=== PATIENT | female | born 1950 | race Caucasian/White ===

== ENCOUNTER 2017-06-17 11:21 | Inpatient (IN) | payer MEDICARE, SELFPAY ==
[2017-06-17] VITALS (9 sets, daily range): BP systolic 79–103; BP diastolic 45–51; PULSE 64–79; RESP 16–22; TEMP 36.3–37.1; O2SAT 92–100; BMI 26.4; BMI 25.3
--- NOTE | 2017-06-17 11:45 | EKG12_ITS ---
Test Reason : Blood Pressure : / mmHG Vent. Rate : 062 BPM Atrial Rate : 062 BPM P-R Int : 144 ms QRS Dur : 128 ms QT Int : 454 ms P-R-T Axes : 008 046 019 degrees QTc Int : 460 ms Normal sinus rhythm Right bundle branch block Abnormal ECG Confirmed by FAWAD ROGERS, AKIN ([id number]), continuity editor AXEL SARABIA ([id number]) on 06/19/2017 3:27:35 PM Referred By: Kobe Bonilla Confirmed By:AKIN CELESTIN MD
[2017-06-17] MEDS: 0.9% Normal Saline 1,000 ML 1000 ML IV (12:04)
[2017-06-17 12:28] LABS: Anion Gap 8 (5-15); BUN 11 mg/dL (7-18); BUN/Creat Ratio 14.6 RATIO (10-20); Calcium,Total 8.3 mg/dL (8.5-10.1); Chloride 104 mmol/L (98-107); Creatinine, Serum 0.75 mg/dL (0.55-1.02); EST Glomerular Filtration Rate 81 mL/min (>60); Est Glom Filt Rate - Afr Amer 98 mL/min (>60); Estimated Creatinine Clearance 38.68 ml/min; Glucose 94 mg/dL (74-106); Potassium 3.4 mmol/L (3.5-5.1); Sodium Level 141 mmol/L (136-145)
--- NOTE | 2017-06-17 13:49 | ED.DCSUM_ITS ---
- ER Visit Summary Date of Service: 06/17/17 Chief Complaint: [Syncope] History of Present Illness: The patient is a 67 F [presents to the] emergency department with a syncopal episode that occurred prior to arrival in the emergency department. Patient was seen her cancer specialist to get chemotherapy today for her esophageal cancer. Patient stood up out of her chair to go speak with the physician and felt lightheaded and dizzy. Patient did pass out for a short time. She was given orange juice. Patient was sent to the ER for further evaluation. Patient apparently felt okay this morning but over last few days she has been feeling lightheaded and dizzy with standing. Patient has had decreased appetite. Patient denies any blood in her stool or black tarry stool. Patient's last chemotherapy was a week ago. Patient denies any chest pain or shortness of breath. Physical Examination: [HEENT-PERRLA, EOMI. Cranial nerves II through XII grossly intact. TMs clear. Mucous membranes dry. No adenopathy. Cardiovascular-regular rate and rhythm without murmur or ectopy Lungs-clear to auscultation, chest wall stable without crepitus or subcu emphysema Abdomen-normoactive bowel sounds, soft, nontender, no rebound or rigidity, no peritoneal signs. Extremities-intact ?4, normal range of motion, normal pulses, atraumatic] Test Results: [EKG shows sinus rhythm with a ventricular rate of 62 bpm with a right bundle branch block. CBC with differential showed a white blood cell count of 1.9, hemoglobin 9.8, hematocrit 29, platelets 286. Chemistry showed a sodium 141, potassium 3.4, chloride 109, CO2 29, glucose 94, BUN 11, creatinine 0.75. Troponin was less than 0.02.] Emergency Department Course and Treatment: [Patient received a liter normal same fluid bolus she will be written for a second liter as she continues to be hypotensive.] Treatment Plan: [Admit for IV hydration] Disposition: [Admit] Impression: [Hypotension Syncope] This note was generated with [employer] dictation software. It may contain incorrect words, spelling, and punctuation that were not noted in review of the chart prior to signing ED Disposition - Plan for ED Patient: Chief Complaint: Syncope Referrals: Prince Shen [Primary Care Provider] -
--- NOTE | 2017-06-17 14:16 | HP.PCM_ITS ---
Problem List (1) History of TIAs Status: Chronic (2) Esophagus cancer Status: Chronic Qualifiers: (3) Metastatic cancer to intra-abdominal lymph nodes Status: Chronic (4) Bone metastases Status: Chronic (5) Liver lesion Status: Chronic (6) Hypertension Status: Chronic Qualifiers: (7) Allergic rhinitis Status: Chronic Qualifiers: (8) Chemotherapy induced neutropenia Status: Chronic History of Present Illness Date of Admission: 06/17/17 Chief Complaint: Syncope. The patient is a 67 year old F with past medical history as mentioned above presented to the medicine because of syncope. Today, patient went to the cancer center for chemotherapy for metastatic esophageal cancer and when she stood up to go for chemotherapy, she felt dizzy with blurry vision and she passed out. She was out for a few seconds and she gained her consciousness shortly. After she woke up, she was dizzy and lightheaded. She denied associated chest pain, palpitation, nausea or vomiting. She has not been eating or drinking well for the last few days because of side effects of chemotherapy. At the same time, she has been having diarrhea at least 3-4 times daily with loose stool without blood. She denied abdominal pain, nausea vomiting. She denied cough or sputum production. Denied chest pain or shortness of breath. She denies urinary symptoms. She denies fever or chills. She had a history of metastatic esophageal cancer and currently on chemotherapy, last chemotherapy was 1 week ago and she supposed to get her chemotherapy today but it was canceled because she passed out. She had a history of TIA and she was started on Plavix that time. She has history of hypertension which seemed to be under control with atenolol and lisinopril. In the emergency room, she was hypotensive. Blood pressure was 79/47, afebrile, ulcerated and pulse ox was normal. Routine blood work was remarkable for leukopenia, anemia and neutropenia with absolute neutrophil count of 700 as well as potassium of 3.4. Troponin is negative. EKG revealed normal sinus rhythm with right bundle branch block, no acute changes. She is being admitted for syncope which is likely vasovagal syncope, hypotension, neutropenia, hypokalemia and dehydration. Past Medical History Past Medical History (Chronic Problems): Chronic Problems (Last Reviewed 06/17/17 @ 11:02 by Anu Rehman) History of TIAs (Chronic) Esophagus cancer (Chronic) Regional lymph node metastasis present (Chronic) Metastatic cancer to intra-abdominal lymph nodes (Chronic) Bone metastases (Chronic) Liver lesion (Chronic) Hypertension (Chronic) Allergic rhinitis (Chronic) Overweight (BMI 25.0-29.9) (Chronic) Chemotherapy induced neutropenia (Chronic) Allergies doxycycline Allergy (Severe, Verified 06/17/17 11:02) Swelling burning/red to face nitrofurantoin [From Macrodantin] Allergy (Mild, Verified 06/17/17 11:02) Rash prednisone Adverse Reaction (Severe, Verified 06/17/17 11:02) Rash burning/red on face Home Medications: Ambulatory Orders Medication Instructions Recorded Atenolol [Tenormin] 25 mg PO DAILY 03/28/17 Lisinopril [Zestril] 30 mg PO DAILY 03/28/17 Ondansetron HCl [Zofran] 4 mg PO Q8H PRN PRN #30 tab 04/11/17 ProCHLORPERazine [Compazine] 10 mg SL Q4H PRN PRN 04/13/17 Famotidine [Pepcid AC] 10 mg PO DAILY 04/22/17 Loratadine [Claritin] 10 mg PO DAILY 04/22/17 Aspirin [Aspirin, Baby] 81 mg PO DAILY@0800 tab.chew 04/24/17 Atorvastatin Calcium [Lipitor] 80 mg PO QHS #30 tab 04/24/17 Clopidogrel Bisulfate [Plavix] 75 mg PO DAILY #30 tab 04/24/17 Nystatin 500,000 unit PO 4X/DAY #1 bottle 04/24/17 Sertraline HCl [Zoloft] 25 mg PO DAILY 05/06/17 Prochlorperazine Maleate 10 mg PO 4X/DAY PRN PRN #30 tab 05/20/17 [Compazine] Bmx Liquid 10 ml PO 4X/DAY PRN PRN #180 ml 05/27/17 Potassium Chloride [K-Dur] 10 meq PO TID 3 Days #9 tab 06/03/17 Surgical History: appendectomy, - - Lymph node dissection/Bx, T+A, Appendectomy. 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 Paternal History Items: - - Father w/ history of severe Alzheimer's diease and Prostate CA. Review of Systems Constitutional: Reports: Weakness. Denies: Anorexia, Chills, Fever Eyes: Denies: Blurred vision, Double vision, Drainage HEENT: Denies: Difficulty Hearing, Ear Pain, Eye Pain Cardiovascular: Reports: Light Headedness, Syncope. Denies: Chest Pain, Chest Pressure, Edema, Heaviness, Orthopnea, Paroxysmal Noc. Dyspnea Respiratory: Denies: Cough, Pleuritic Pain, Shortness of Breath, Sputum production, Wheezing Gastrointestinal: Denies: Abdominal Pain, Diarrhea, Nausea, Vomiting Genitourinary: Denies: Dysuria, Frequency, Hematuria Musculoskeletal: Denies: Arm Pain, Back Pain, Foot Pain Skin: Denies: Dryness, Rash Neurological: Denies: Balance problems, Change in Speech, Slurred speech, Confusion, Headaches, Incoordination, Numbness, Tingling Psychiatric: Denies: Anxiety, Depression Endocrine: Denies: Change in Body Habitus, Polydipsia VTE Information - Inpt Only VTE Present on Admission: No VTE Mechan Device Prophylaxis: None VTE Pharm Prophylaxis ordered?: Yes - Physical Exam General: Alert, Oriented x3, Cooperative, No apparent distress HEENT: Atraumatic, PERRLA, EOMI Oral: No Gingival or Mucosal Lesions/ Ulcerations, Dry Mucosa Neck: Supple, No JVD, Negative Carotid Bruits, Trachea Midline, Thyroid Normal Size and Texture Lungs: Clear to auscultation, No rhonchi, No wheeze, No rales, Diminished Cardiovascular: Regular rate, Regular Rhythm, Normal S1, No murmurs, PMI Normal Abdomen: Bowel Sounds Present, Soft, Non Tender, Non-Distended, No Hepato- splenomegaly Extremities: No clubbing, No cyanosis, No edema Skin: No rashes, No breakdown Lymphatic: No Cervical, Supraclavicular, or Inguinal Adenopathy Neurological: Cranial nerves II-XII grossly intact, Motor Exam 5/5 strength throughout Psych/Mental Status: Normal Affect, Appropriate, Alert and oriented to time, place, person, mood and affect Vital Signs Temp Pulse Resp BP Pulse Ox 97.7 F L 64 18 89/48 L 100 06/17/17 11:22 06/17/17 13:56 06/17/17 13:56 06/17/17 13:56 06/17/17 13:56 Oxygen Delivery Method Room Air Weight: 135 lb 2.294 oz Body Mass Index (BMI) 26.4 Finger Stick Blood Glucose 170 Laboratory Tests Past 24 Hrs 06/17/17 10:55 Sodium 141 Potassium 3.4 L Chloride 104 Carbon Dioxide 29.0 Anion Gap 8 BUN 11 Creatinine 0.75 Estim Creat Clear Calc 38.68 Est GFR (MDRD) Af Amer 98 Est GFR (MDRD) Non-Af 81 BUN/Creatinine Ratio 14.6 Glucose 94 Calcium 8.3 L Troponin I < 0.02 Assessment/Plan This is a 67 years old female patient presented to the emergency room because of syncope, found to have hypotension, neutropenia, hypokalemia and dehydration. #1 syncope/hypotension: This is vasovagal syncope secondary to poor oral intake , diarrhea and patient continued to take her antihypertensive medications. EKG revealed normal sinus rhythm with right bundle branch block, no acute changes or arrhythmias. No focal deficit on physical exam. Blood pressure slightly improved after IV fluids. Plan: Admit to PCU, cardiac monitoring, IV fluids for hydration with potassium replacement, input output chart, repeat CBC and BMP tomorrow morning, hold antihypertensive medications including atenolol and lisinopril, repeat orthostatic vitals tomorrow morning, encourage oral intake, PT OT evaluation and treatment. #2 dehydration/diarrhea: Secondary to poor oral intake and diarrhea. Patient clinically dehydrated, BUN and creatinine are normal. Plan for IV fluids, input output chart, hold lisinopril and atenolol, stool for C. difficile and enteric pathogens. #3 hypokalemia: Chronic, secondary to chemotherapy. Potassium is 3.4. No EKG changes, plan to replace potassium with potassium chloride added to IV fluids, repeat BMP tomorrow morning, check serum magnesium. #4 leukopenia/neutropenia: Without fever. It is secondary to chemotherapy. Absolute neutrophil count is 700. She has no fever. No evidence of infection, UA is pending. #5 chronic anemia: Secondary to cancer and chemotherapy, baseline hemoglobin around 10-12 g/dL. admission hemoglobin is 9.8 g/dL, no evidence of active bleeding. No indication for transfusion. Plan to repeat CBC tomorrow morning. #6 metastatic esophageal cancer: With metastasis to bone and liver as well as intra-abdominal lymph nodes, currently chemotherapy. She follows up with Dr. Ferguson. #7 hypertension: Pressure is low, plan as above. Hold atenolol and lisinopril. #8 DVT prophylaxis: Subcu Lovenox. This note was generated with [employer]ation software. It may contain incorrect words, spelling, and punctuation that were not noted in checking the note before signing. Code Visit Inpatient E&M: 64822 Init Hosp L3
[2017-06-17] MEDS: NYSTATIN 500,000 UNIT/5 ML UDC 500000 UNIT PO ×2 (18:18→23:12)
[2017-06-17 20:28] LABS: Red Blood Cells-Urine 0 SEEN /hpf (0-5); Squamous Epithelial Cells - UA 0 SEEN /hpf (5-10)
[2017-06-17 20:39] LABS: Color, Urine Yellow (Yellow); Glucose, Dipstick Normal (Normal); Ketone-Dipstick 5 mg/dl (Negative); Leukocyte Esterase-Dipstick 500 /ul (Negative); Nitrite-Dipstick Negative (Negative); Occult Blood-Urine 10 /ul (Negative); Protein-Dipstick 15 mg/dl (Negative); Specific Gravity, Urine 1.015 (1.002-1.030); Urine Bilirubin Dipstick Negative (Negative); Urine Clarity Sl. Cloudy (Clear); Urine Urobilinogen Normal (Normal)
[2017-06-17 21:01] LABS: Bacteria RARE /hpf (None Seen); Hyaline Cast 0-5 SEEN /lpf (0-5); Mucous, Urine 2+ /hpf (<or=2+); White Blood Cells 10-25 SEEN /hpf (0-5)
[2017-06-17] MEDS: Atorvastatin Calcium 80 MG Tablet PO (23:12)
[2017-06-17] MEDS: LORazepam 0.5 MG Tablet PO (23:56)
[2017-06-18] VITALS (14 sets, daily range): BP systolic 97–112; BP diastolic 46–56; PULSE 76–103; RESP 16–18; TEMP 36.8–37.5; O2SAT 93–97
[2017-06-18 06:09] LABS: Absolute Lymphocyte Count 0.94 X10^3/ul (0.83-4.51); Absolute Neutrophil Count 0.4 X10^3/uL (2.0-7.7); Basophil# 0.05 X10^3/uL; Basophil% 3.4 % (0-1); Eosinophil# 0.01 X10^3/uL; Eosinophils% 0.7 % (0-5); Hematocrit 24.3 % (37-47); Hemoglobin 7.9 g/dl (12.0-15.0); Lymphocyte # 0.94 X10^3/ul (4.0); Lymphocyte % 63.5 % (19-41); Mean Corp Hgb Conc 32.5 g/gl (32-36); Mean Corpuscular Hgb 31.1 pg (27.0-32.0); Mean Corpuscular Volume 95.7 fL (81-99); Mean Platelet Vol. 9.9 fl (6.2-12.0); Monocyte# 0.13 X10^3/uL; Monocyte% 8.8 % (0-10); Neutrophil # 0.35 X10^3/uL (2.7-7.7); Neutrophil % 23.6 % (47-70); Platelet Count 219 K/mm3 (150-450); Red Blood Count 2.54 M/mm3 (4.2-5.4); White Blood Count 1.5 K/mm3 (4.4-11.0)
[2017-06-18 06:10] LABS: Differential Indicated SCAN CRITERIA MET; POSITIVE COUNT YES; POSITIVE DIFFERENTIAL YES; POSITIVE MORPHOLOGY NO
[2017-06-18 06:21] LABS: Anion Gap 8 (5-15); BUN 7 mg/dL (7-18); Calcium,Total 7.6 mg/dL (8.5-10.1); Chloride 111 mmol/L (98-107); Creatinine, Serum 0.44 mg/dL (0.55-1.02); EST Glomerular Filtration Rate 152 mL/min (>60); Est Glom Filt Rate - Afr Amer 184 mL/min (>60); Estimated Creatinine Clearance 38.68 ml/min; Glucose 80 mg/dL (74-106); Potassium 3.3 mmol/L (3.5-5.1); Sodium Level 145 mmol/L (136-145)
[2017-06-18] MEDS: Aspirin 81 MG TAB.CHEW PO (09:00)
[2017-06-18] MEDS: Sertraline 50 MG Tablet 25 MG PO (09:00)
[2017-06-18] MEDS: Famotidine 20 MG Tablet 10 MG PO (09:01)
[2017-06-18] MEDS: Loratadine 10 MG Tablet PO (09:01)
[2017-06-18] MEDS: Clopidogrel Bisulfate 75 MG Tablet PO (09:01)
[2017-06-18] MEDS: NYSTATIN 500,000 UNIT/5 ML UDC 500000 UNIT PO ×4 (09:01→21:12)
[2017-06-18] MEDS: Enoxaparin 40 MG/0.4 ML Syringe SC (09:02)
--- NOTE | 2017-06-18 11:00 | CASEMGMT ---
Addendum entered by Piedad Martinez 06/18/17 11:55: This RN CM back to room to complete CM assessment and RN is at bedside completing pt care at this time. Will attempt again later. Cyndi NARANJO CM Original Note: This RN CM to room to complete CM assessment and pt is in bathroom with assist at this time. Will attempt again later. Cyndi NARANJO CM
--- NOTE | 2017-06-18 14:18 | CASEMGMT ---
This RN CM to room to complete CM assessment and therapy is at bedside working with pt at this time. This RN CM will see as first pt 06/19. SSttrinidad RN CM
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
--- NOTE | 2017-06-18 16:59 | PCM.PN.HOSP ---
Patient Problems: Active and Suspected Problems (Last Reviewed 06/17/17 @ 11:02 by Anu Rehman) Hypotension (Acute) Pancytopenia (Acute) Subjective: Patient overall feels better. she had nausea, vomiting and diarrhea after chemotherapy. She had hypotension and on the top she is on antihypertensive medication probably that is the reason for syncope. Vitals/I&O's: Vital Signs Temp Pulse Resp BP Pulse Ox 98.2 F 85 18 108/55 L 96 06/18/17 15:33 06/18/17 15:33 06/18/17 15:33 06/18/17 15:33 06/18/17 15:33 Oxygen Delivery Method Room Air Weight: 129 lb 10.109 oz Body Mass Index (BMI) 25.3 Orthostatic Vital Signs Start: 06/18/17 01:03 Freq: q24h Status: Active Protocol: Activity Type Activity Date Activity User E-Sign Co-Sign Detail Recorded Client Recorded Date Recorded By Document 06/18/17 05:10 BAM [id number] 06/18/17 05:13 BAM 06/18/17 05:10 Orthostatic Vitals Standing -Blood Pressure (90/60-120/80) 97/49 L -Extremity Use Right Arm -Pulse Rate (60-100) 103 H Sitting -Blood Pressure (90/60-120/80) 98/47 L -Extremity Use Right Arm -Pulse Rate (60-100) 88 Lying -Blood Pressure (90/60-120/80) 102/46 L -Extremity Use Right Arm -Pulse Rate (60-100) 85 Intake and Output for Last 24 Hours 06/16/17 06/17/17 06/18/17 23:59 23:59 23:59 Intake Total 923 / 923 1231 / 1231 Balance 923 / 923 1231 / 1231 General: Alert, Oriented x3, Cooperative, Lethargic, - - Lost about 16 pounds in 3 months. HEENT: Atraumatic, PERRLA, EOMI, Normocephalic Oral: Moist Mucosa Neck: Supple, No JVD, Negative Carotid Bruits Lungs: Clear to auscultation, Normal air movement, No rhonchi, No wheeze, No rales Cardiovascular: Regular rate, No murmurs Abdomen: Bowel Sounds Present, Soft, Non Tender, Non-Distended Extremities: No edema, Capillary Refill Less than 3 Seconds Skin: No rashes, No breakdown Musculoskeletal: No Tenderness to Palpation of Joints or Extremities Neurological: Cranial nerves II-XII grossly intact Psych/Mental Status: Normal Affect, Appropriate Microbiology Past 72 Hours 06/18/17 12:14 Stool C. difficile DNA Amplification - Final Laboratory Results 06/17/17 20:10: Urine Color Yellow, Urine Clarity Sl. Cloudy, Urine pH 6.0, Ur Specific [place] 1.015, Urine Protein 15 H, Urine Glucose (UA) Normal, Urine Ketones 5 H, Urine Occult Blood 10 H, Urine Nitrite Negative, Urine Bilirubin Negative, Urine Urobilinogen Normal, Ur Leukocyte Esterase 500 H, Urine RBC 0 SEEN, Urine WBC 10-25 SEEN, Ur Squamous Epith Cells 0 SEEN, Urine Bacteria RARE, Hyaline Casts 0-5 SEEN, Urine Mucus 2+ 06/18/17 05:40: WBC 1.5 L, RBC 2.54 L, Hgb 7.9 L, Hct 24.3 L, MCV 95.7, MCH 31.1, MCHC 32.5, RDW 16.0 H, RDW Differential 53.0 H, Plt Count 219, MPV 9.9, Immature Gran % (Auto) 0.000, Neut % (Auto) 23.6 L, Lymph % (Auto) 63.5 H, [place] % (Auto) 8.8, Eos % (Auto) 0.7, Baso % (Auto) 3.4 H, Absolute Neuts (auto) 0.4 L, Absolute Lymphs (auto) 0.94, Total Counted Not Reportable 06/18/17 05:40: Sodium 145, Potassium 3.3 L, Chloride 111 H, Carbon Dioxide 26.0, Anion Gap 8, BUN 7, Creatinine 0.44 L, Estim Creat Clear Calc 38.68, Est GFR (MDRD) Af Amer 184, Est GFR (MDRD) Non-Af 152, BUN/Creatinine Ratio 16.0, Glucose 80, Calcium 7.6 L Current Medications Acetaminophen (Tylenol) 650 mg PO Q6H PRN PRN PRN Reason: Fever, headache, pain Aspirin (Aspirin, Baby) 81 mg PO DAILY@0800 [facility] Last Admin: 06/18/17 09:00 Dose: 81 mg Atorvastatin Calcium (Lipitor) 80 mg PO QHS [facility] Last Admin: 06/17/17 23:12 Dose: 80 mg Clopidogrel Bisulfate (Plavix) 75 mg PO DAILY [facility] Last Admin: 06/18/17 09:01 Dose: 75 mg Enoxaparin Sodium (Lovenox) 40 mg SC DAILY@1000 [facility] Last Admin: 06/18/17 09:02 Dose: 40 mg Famotidine (Pepcid) 10 mg PO DAILY [facility] Last Admin: 06/18/17 09:01 Dose: 10 mg Heparin Sodium (Beef Lung) (Heparin 500 Unit/5 Ml (100/Ml)) 500 unit IV UD PRN PRN Reason: HEPARIN FLUSH Potassium Chloride/Sodium Chloride () 1,000 mls @ 100 mls/hr IV .Q10H [facility] Last Admin: 06/18/17 11:53 Dose: 100 mls/hr Loratadine (Claritin) 10 mg PO DAILY [facility] Last Admin: 06/18/17 09:01 Dose: 10 mg Nutritional Formula (Lactose Free) (Ensure Enlive) 120 ml PO 4X/DAY [facility] Last Admin: 06/18/17 14:35 Dose: 120 ml Nystatin (Nystatin) 500,000 unit PO 4X/DAY [facility] Stop: 07/01/17 14:01 Last Admin: 06/18/17 14:35 Dose: 500,000 unit Ondansetron HCl (Zofran) 4 mg IV Q8H PRN PRN PRN Reason: NAUSEA/VOMITING Potassium Chloride (K-Dur) 40 meq PO BIDCM [facility] Sertraline HCl (Zoloft) 25 mg PO DAILY [facility] Last Admin: 06/18/17 09:00 Dose: 25 mg Sodium Chloride () 10 ml IV UD PRN PRN Reason: VAD FLUSH Tbo-Filgrastim (Granix) 300 mcg SC DAILY [facility] Assessment/Plan Active and Suspected Problems (Last Reviewed 06/17/17 @ 11:02 by Anu Rehman) Hypotension (Acute) Pancytopenia (Acute) This is a 67 years old female patient presented to the emergency room because of syncope, found to have hypotension, neutropenia, hypokalemia and dehydration. #1 syncope due to dehydration and hypotension: This is vasovagal syncope secondary to poor oral intake, diarrhea and patient continued to take her antihypertensive medications. EKG revealed normal sinus rhythm with right bundle branch block, no acute changes or arrhythmias. No focal deficit on physical exam. Blood pressure slightly improved after IV fluids. The patient is being admitted to PCU, cardiac monitoring, IV fluids for hydration with potassium replacement, input output chart, repeat CBC and BMP tomorrow morning, hold antihypertensive medications including atenolol and lisinopril, repeat orthostatic vitals tomorrow morning, encourage oral intake, PT OT evaluation and treatment. Patient was advised to hold lisinopril and atenolol at home when her systolic blood pressures less than 130 mmHg. She has home BP monitor. #2 dehydration/diarrhea: Secondary to poor oral intake and diarrhea. Patient clinically dehydrated, BUN and creatinine are normal. Continue IV fluids, input output chart, hold lisinopril and atenolol, stool for C. difficile is negative and enteric Bacteroides panel pending. #3 hypokalemia: Chronic, secondary to chemotherapy. Potassium is 3.4. No EKG changes, plan to replace potassium with potassium chloride added to IV fluids, repeat BMP tomorrow morning, check serum magnesium. #4 Severe anemia and neutropenia due to bone marrow suppression from chemotherapy: Has severe anemia, leukopenia/neutropenia: Without fever. It is secondary to chemotherapy. Absolute neutrophil count was 700 and dropped to 400. She has no fever. No evidence of infection, UA is pending. Discussed with the oncologist. Neupogen given. Patient was advised to follow-up with Dr. Aceves in the office after discharge to get prescription for Neulasta, which is long-lasting and its effect last for 10 days. #5 chronic anemia: Secondary to cancer and chemotherapy, baseline hemoglobin around 10-12 g/dL. admission hemoglobin is 9.8 g/dL, no evidence of active bleeding. Hemoglobin dropped to 7.9 g percent repeat H&H in the evening. No indication for transfusion. #6 metastatic esophageal cancer: With metastasis to bone and liver as well as intra-abdominal lymph nodes, currently chemotherapy. She follows up with Dr. Ferguson. #7 hypertension: Pressure is low, plan as above. Hold atenolol and lisinopril. #8 DVT prophylaxis: Pharmacological prophylaxis contraindicated. Discontinue antiplatelet and antithrombotic agent. This note was generated with [employer] dictation software. Every effort was made to ensure accuracy, however computerized atmospheric drier tender mistakes may persist. Microbiology Past 72 Hours 06/18/17 12:14 Stool C. difficile DNA Amplification - Final Laboratory Results 06/17/17 20:10: Urine Color Yellow, Urine Clarity Sl. Cloudy, Urine pH 6.0, Ur Specific [place] 1.015, Urine Protein 15 H, Urine Glucose (UA) Normal, Urine Ketones 5 H, Urine Occult Blood 10 H, Urine Nitrite Negative, Urine Bilirubin Negative, Urine Urobilinogen Normal, Ur Leukocyte Esterase 500 H, Urine RBC 0 SEEN, Urine WBC 10-25 SEEN, Ur Squamous Epith Cells 0 SEEN, Urine Bacteria RARE, Hyaline Casts 0-5 SEEN, Urine Mucus 2+ 06/18/17 05:40: WBC 1.5 L, RBC 2.54 L, Hgb 7.9 L, Hct 24.3 L, MCV 95.7, MCH 31.1, MCHC 32.5, RDW 16.0 H, RDW Differential 53.0 H, Plt Count 219, MPV 9.9, Immature Gran % (Auto) 0.000, Neut % (Auto) 23.6 L, Lymph % (Auto) 63.5 H, [place] % (Auto) 8.8, Eos % (Auto) 0.7, Baso % (Auto) 3.4 H, Absolute Neuts (auto) 0.4 L, Absolute Lymphs (auto) 0.94, Total Counted Not Reportable 06/18/17 05:40: Sodium 145, Potassium 3.3 L, Chloride 111 H, Carbon Dioxide 26.0, Anion Gap 8, BUN 7, Creatinine 0.44 L, Estim Creat Clear Calc 38.68, Est GFR (MDRD) Af Amer 184, Est GFR (MDRD) Non-Af 152, BUN/Creatinine Ratio 16.0, Glucose 80, Calcium 7.6 L Code Visit Inpatient E&M: 39141 Subs Hosp L3
--- NOTE | 2017-06-18 17:08 | PN_ITS ---
Patient Problems: Active and Suspected Problems (Last Reviewed 06/17/17 @ 11:02 by Anu Rehman) Hypotension (Acute) Pancytopenia (Acute) Subjective: Patient overall feels better. she had nausea, vomiting and diarrhea after chemotherapy. She had hypotension and on the top she is on antihypertensive medication probably that is the reason for syncope. Vitals/I&O's: Vital Signs Temp Pulse Resp BP Pulse Ox 98.2 F 85 18 108/55 L 96 06/18/17 15:33 06/18/17 15:33 06/18/17 15:33 06/18/17 15:33 06/18/17 15:33 Oxygen Delivery Method Room Air Weight: 129 lb 10.109 oz Body Mass Index (BMI) 25.3 Orthostatic Vital Signs Start: 06/18/17 01:03 Freq: q24h Status: Active Protocol: Activity Type Activity Date Activity User E-Sign Co-Sign Detail Recorded Client Recorded Date Recorded By Document 06/18/17 05:10 BAM [id number] 06/18/17 05:13 BAM 06/18/17 05:10 Orthostatic Vitals Standing -Blood Pressure (90/60-120/80) 97/49 L -Extremity Use Right Arm -Pulse Rate (60-100) 103 H Sitting -Blood Pressure (90/60-120/80) 98/47 L -Extremity Use Right Arm -Pulse Rate (60-100) 88 Lying -Blood Pressure (90/60-120/80) 102/46 L -Extremity Use Right Arm -Pulse Rate (60-100) 85 Intake and Output for Last 24 Hours 06/16/17 06/17/17 06/18/17 23:59 23:59 23:59 Intake Total 923 / 923 1231 / 1231 Balance 923 / 923 1231 / 1231 General: Alert, Oriented x3, Cooperative, Lethargic, - - Lost about 16 pounds in 3 months. HEENT: Atraumatic, PERRLA, EOMI, Normocephalic Oral: Moist Mucosa Neck: Supple, No JVD, Negative Carotid Bruits Lungs: Clear to auscultation, Normal air movement, No rhonchi, No wheeze, No rales Cardiovascular: Regular rate, No murmurs Abdomen: Bowel Sounds Present, Soft, Non Tender, Non-Distended Extremities: No edema, Capillary Refill Less than 3 Seconds Skin: No rashes, No breakdown Musculoskeletal: No Tenderness to Palpation of Joints or Extremities Neurological: Cranial nerves II-XII grossly intact Psych/Mental Status: Normal Affect, Appropriate Microbiology Past 72 Hours 06/18/17 12:14 Stool C. difficile DNA Amplification - Final Laboratory Results 06/17/17 20:10: Urine Color Yellow, Urine Clarity Sl. Cloudy, Urine pH 6.0, Ur Specific [place] 1.015, Urine Protein 15 H, Urine Glucose (UA) Normal, Urine Ketones 5 H, Urine Occult Blood 10 H, Urine Nitrite Negative, Urine Bilirubin Negative, Urine Urobilinogen Normal, Ur Leukocyte Esterase 500 H, Urine RBC 0 SEEN, Urine WBC 10-25 SEEN, Ur Squamous Epith Cells 0 SEEN, Urine Bacteria RARE , Hyaline Casts 0-5 SEEN, Urine Mucus 2+ 06/18/17 05:40: WBC 1.5 L, RBC 2.54 L, Hgb 7.9 L, Hct 24.3 L, MCV 95.7, MCH 31.1 , MCHC 32.5, RDW 16.0 H, RDW Differential 53.0 H, Plt Count 219, MPV 9.9, Immature Gran % (Auto) 0.000, Neut % (Auto) 23.6 L, Lymph % (Auto) 63.5 H, Terry % (Auto) 8.8, Eos % (Auto) 0.7, Baso % (Auto) 3.4 H, Absolute Neuts (auto) 0.4 L , Absolute Lymphs (auto) 0.94, Total Counted Not Reportable 06/18/17 05:40: Sodium 145, Potassium 3.3 L, Chloride 111 H, Carbon Dioxide 26.0 , Anion Gap 8, BUN 7, Creatinine 0.44 L, Estim Creat Clear Calc 38.68, Est GFR ( MDRD) Af Amer 184, Est GFR (MDRD) Non-Af 152, BUN/Creatinine Ratio 16.0, Glucose 80, Calcium 7.6 L Current Medications Acetaminophen (Tylenol) 650 mg PO Q6H PRN PRN PRN Reason: Fever, headache, pain Aspirin (Aspirin, Baby) 81 mg PO DAILY@0800 [facility] Last Admin: 06/18/17 09:00 Dose: 81 mg Atorvastatin Calcium (Lipitor) 80 mg PO QHS [facility] Last Admin: 06/17/17 23:12 Dose: 80 mg Clopidogrel Bisulfate (Plavix) 75 mg PO DAILY [facility] Last Admin: 06/18/17 09:01 Dose: 75 mg Enoxaparin Sodium (Lovenox) 40 mg SC DAILY@1000 [facility] Last Admin: 06/18/17 09:02 Dose: 40 mg Famotidine (Pepcid) 10 mg PO DAILY [facility] Last Admin: 06/18/17 09:01 Dose: 10 mg Heparin Sodium (Beef Lung) (Heparin 500 Unit/5 Ml (100/Ml)) 500 unit IV UD PRN PRN Reason: HEPARIN FLUSH Potassium Chloride/Sodium Chloride () 1,000 mls @ 100 mls/hr IV .Q10H [facility] Last Admin: 06/18/17 11:53 Dose: 100 mls/hr Loratadine (Claritin) 10 mg PO DAILY [facility] Last Admin: 06/18/17 09:01 Dose: 10 mg Nutritional Formula (Lactose Free) (Ensure Enlive) 120 ml PO 4X/DAY [facility] Last Admin: 06/18/17 14:35 Dose: 120 ml Nystatin (Nystatin) 500,000 unit PO 4X/DAY [facility] Stop: 07/01/17 14:01 Last Admin: 06/18/17 14:35 Dose: 500,000 unit Ondansetron HCl (Zofran) 4 mg IV Q8H PRN PRN PRN Reason: NAUSEA/VOMITING Potassium Chloride (K-Dur) 40 meq PO BIDCM [facility] Sertraline HCl (Zoloft) 25 mg PO DAILY [facility] Last Admin: 06/18/17 09:00 Dose: 25 mg Sodium Chloride () 10 ml IV UD PRN PRN Reason: VAD FLUSH Tbo-Filgrastim (Granix) 300 mcg SC DAILY [facility] Assessment/Plan Active and Suspected Problems (Last Reviewed 06/17/17 @ 11:02 by Anu Rehman) Hypotension (Acute) Pancytopenia (Acute) This is a 67 years old female patient presented to the emergency room because of syncope, found to have hypotension, neutropenia, hypokalemia and dehydration. #1 syncope due to dehydration and hypotension: This is vasovagal syncope secondary to poor oral intake, diarrhea and patient continued to take her antihypertensive medications. EKG revealed normal sinus rhythm with right bundle branch block, no acute changes or arrhythmias. No focal deficit on physical exam. Blood pressure slightly improved after IV fluids. The patient is being admitted to PCU, cardiac monitoring, IV fluids for hydration with potassium replacement, input output chart, repeat CBC and BMP tomorrow morning, hold antihypertensive medications including atenolol and lisinopril, repeat orthostatic vitals tomorrow morning, encourage oral intake, PT OT evaluation and treatment. Patient was advised to hold lisinopril and atenolol at home when her systolic blood pressures less than 130 mmHg. She has home BP monitor. #2 dehydration/diarrhea: Secondary to poor oral intake and diarrhea. Patient clinically dehydrated, BUN and creatinine are normal. Continue IV fluids, input output chart, hold lisinopril and atenolol, stool for C. difficile is negative and enteric Bacteroides panel pending. #3 hypokalemia: Chronic, secondary to chemotherapy. Potassium is 3.4. No EKG changes, plan to replace potassium with potassium chloride added to IV fluids, repeat BMP tomorrow morning, check serum magnesium. #4 Severe anemia and neutropenia due to bone marrow suppression from chemotherapy: Has severe anemia, leukopenia/neutropenia: Without fever. It is secondary to chemotherapy. Absolute neutrophil count was 700 and dropped to 400. She has no fever. No evidence of infection, UA is pending. Discussed with the oncologist. Neupogen given. Patient was advised to follow-up with Dr. Aceves in the office after discharge to get prescription for Neulasta, which is long-lasting and its effect last for 10 days. #5 chronic anemia: Secondary to cancer and chemotherapy, baseline hemoglobin around 10-12 g/dL. admission hemoglobin is 9.8 g/dL, no evidence of active bleeding. Hemoglobin dropped to 7.9 g percent repeat H&H in the evening. No indication for transfusion. #6 metastatic esophageal cancer: With metastasis to bone and liver as well as intra-abdominal lymph nodes, currently chemotherapy. She follows up with Dr. Ferguson. #7 hypertension: Pressure is low, plan as above. Hold atenolol and lisinopril. #8 DVT prophylaxis: Pharmacological prophylaxis contraindicated. Discontinue antiplatelet and antithrombotic agent. This note was generated with Variable dictation software. Every effort was made to ensure accuracy, however computerized health and fitness professor mistakes may persist. Microbiology Past 72 Hours 06/18/17 12:14 Stool C. difficile DNA Amplification - Final Laboratory Results 06/17/17 20:10: Urine Color Yellow, Urine Clarity Sl. Cloudy, Urine pH 6.0, Ur Specific [place] 1.015, Urine Protein 15 H, Urine Glucose (UA) Normal, Urine Ketones 5 H, Urine Occult Blood 10 H, Urine Nitrite Negative, Urine Bilirubin Negative, Urine Urobilinogen Normal, Ur Leukocyte Esterase 500 H, Urine RBC 0 SEEN, Urine WBC 10-25 SEEN, Ur Squamous Epith Cells 0 SEEN, Urine Bacteria RARE , Hyaline Casts 0-5 SEEN, Urine Mucus 2+ 06/18/17 05:40: WBC 1.5 L, RBC 2.54 L, Hgb 7.9 L, Hct 24.3 L, MCV 95.7, MCH 31.1 , MCHC 32.5, RDW 16.0 H, RDW Differential 53.0 H, Plt Count 219, MPV 9.9, Immature Gran % (Auto) 0.000, Neut % (Auto) 23.6 L, Lymph % (Auto) 63.5 H, Terry % (Auto) 8.8, Eos % (Auto) 0.7, Baso % (Auto) 3.4 H, Absolute Neuts (auto) 0.4 L , Absolute Lymphs (auto) 0.94, Total Counted Not Reportable 06/18/17 05:40: Sodium 145, Potassium 3.3 L, Chloride 111 H, Carbon Dioxide 26.0 , Anion Gap 8, BUN 7, Creatinine 0.44 L, Estim Creat Clear Calc 38.68, Est GFR ( MDRD) Af Amer 184, Est GFR (MDRD) Non-Af 152, BUN/Creatinine Ratio 16.0, Glucose 80, Calcium 7.6 L Code Visit Inpatient E&M: 13643 Subs Hosp L3
[2017-06-18 20:39] LABS: Hematocrit 25.2 % (37-47); Hemoglobin 8.1 g/dl (12.0-15.0)
[2017-06-18] MEDS: Atorvastatin Calcium 80 MG Tablet PO (21:12)
[2017-06-18] MEDS: Zolpidem Tartrate 5 MG Tablet PO (21:18)
[2017-06-18] MEDS: 0.9% NaCl VAD Flush 10 ML IV (21:18)
[2017-06-18] MEDS: TBO-FILGRASTIM 300 MCG/0.5 ML ML SC (21:20)
[2017-06-19] VITALS (9 sets, daily range): BP systolic 96–127; BP diastolic 50–69; PULSE 80–103; RESP 16–18; TEMP 36.7–37.3; O2SAT 95–98
[2017-06-19] MEDS: 0.9% NaCl VAD Flush 10 ML IV ×3 (04:15→09:30)
[2017-06-19 04:29] LABS: Absolute Lymphocyte Count 0.65 X10^3/ul (0.83-4.51); Absolute Neutrophil Count 1.1 X10^3/uL (2.0-7.7); Basophil# 0.02 X10^3/uL; Eosinophil# 0.01 X10^3/uL; Eosinophils% 0.5 % (0-5); Hematocrit 24.7 % (37-47); Hemoglobin 7.9 g/dl (12.0-15.0); Lymphocyte # 0.65 X10^3/ul (4.0); Lymphocyte % 33.7 % (19-41); Mean Corpuscular Volume 96.9 fL (81-99); Mean Platelet Vol. 9.1 fl (6.2-12.0); Monocyte% 10.4 % (0-10); Neutrophil # 1.05 X10^3/uL (2.7-7.7); Neutrophil % 54.4 % (47-70); Platelet Count 215 K/mm3 (150-450); RBC Distribution Width CV 16.9 % (11.6-14.6); RBC Distribution Width SD 56.5 fl (35.1-43.9); Red Blood Count 2.55 M/mm3 (4.2-5.4); White Blood Count 1.9 K/mm3 (4.4-11.0)
[2017-06-19 04:48] LABS: POSITIVE COUNT NO; POSITIVE DIFFERENTIAL NO; POSITIVE MORPHOLOGY NO
[2017-06-19 05:03] LABS: Anion Gap 5 (5-15); BUN 5 mg/dL (7-18); BUN/Creat Ratio 11.6 RATIO (10-20); Calcium,Total 7.7 mg/dL (8.5-10.1); Chloride 116 mmol/L (98-107); Creatinine, Serum 0.43 mg/dL (0.55-1.02); EST Glomerular Filtration Rate 155 mL/min (>60); Est Glom Filt Rate - Afr Amer 187 mL/min (>60); Estimated Creatinine Clearance 38.68 ml/min; Glucose 77 mg/dL (74-106); Magnesium 1.7 mg/dL (1.6-2.6); Potassium 4.3 mmol/L (3.5-5.1); Sodium Level 145 mmol/L (136-145)
[2017-06-19] MEDS: Ondansetron 4 MG/2 ML Vial IV (09:29)
[2017-06-19] MEDS: NYSTATIN 500,000 UNIT/5 ML UDC 500000 UNIT PO ×2 (10:20→15:27)
[2017-06-19] MEDS: Clopidogrel Bisulfate 75 MG Tablet PO (10:21)
[2017-06-19] MEDS: Sertraline 50 MG Tablet 25 MG PO (10:21)
[2017-06-19] MEDS: Loratadine 10 MG Tablet PO (10:22)
[2017-06-19] MEDS: Famotidine 20 MG Tablet 10 MG PO (10:22)
[2017-06-19] MEDS: TBO-FILGRASTIM 300 MCG/0.5 ML ML SC (10:23)
[2017-06-19] MEDS: Enoxaparin 40 MG/0.4 ML Syringe SC (10:24)
--- NOTE | 2017-06-19 14:28 | CASEMGMT ---
Face to Face with patient for initial transition planning/care coordination assessment. MARCELLA RAMSEY introduced self and role at [facility], pt voices understanding and consents to assessment at this time. Pt sitting up on side of bed in no distress at this time. Pt A/O x4 at this time and answers all questions appropriately at this time. Care providers, pharmacy, and demographics verified. See attached link. Pt voices no further concerns/needs at this time. Advised pt to ask for CM if any further questions/concerns/needs arise, voices understanding. PLAN: [place] MARCELLA RAMSEY
--- NOTE | 2017-06-19 15:31 | PCM.DC ---
- Discharge Diagnoses Current Active Problems: Current Active and Chronic Problems (Last Reviewed 06/17/17 @ 11:02 by Anu Rehman) Hypotension (Acute) Weight loss (Chronic) Pancytopenia (Acute) History of TIAs (Chronic) Esophagus cancer (Chronic) Regional lymph node metastasis present (Chronic) Metastatic cancer to intra-abdominal lymph nodes (Chronic) Bone metastases (Chronic) Liver lesion (Chronic) Chemotherapy induced neutropenia (Chronic) You will use the following diet at home:: Regular Discharge Activity: May Not Drive Allergies/Adverse Reactions: Allergies doxycycline Allergy (Severe, Verified 06/17/17 11:02) Swelling burning/red to face prednisone Allergy (Severe, Verified 06/17/17 14:42) Rash burning/red on face nitrofurantoin [From Macrodantin] Allergy (Mild, Verified 06/17/17 11:02) Rash Medications to take at Discharge Atenolol [Tenormin] 25 mg PO DAILY 03/28/17 Lisinopril [Zestril] 30 mg PO DAILY 03/28/17 Ondansetron HCl [Zofran] 4 mg PO Q8H PRN PRN #30 tab 04/11/17 ProCHLORPERazine [Compazine] 10 mg SL Q4H PRN PRN 04/13/17 Famotidine [Pepcid AC] 10 mg PO DAILY PRN 04/22/17 Loratadine [Claritin] 10 mg PO DAILY 04/22/17 Atorvastatin Calcium [Lipitor] 80 mg PO QHS #30 tab 04/24/17 Sertraline HCl [Zoloft] 25 mg PO QHS 05/06/17 Prochlorperazine Maleate [Compazine] 10 mg PO 4X/DAY PRN PRN #30 tab 05/20/17 Bmx Liquid 10 ml PO 4X/DAY PRN PRN #180 ml 05/27/17 Aspirin [Aspirin, Baby] 81 mg PO DAILY@0800 #0 tab.chew 06/19/17 Clopidogrel Bisulfate [Plavix] 75 mg PO DAILY #30 tab 06/19/17 Nystatin 500,000 unit PO 4X/DAY #1 udc 06/19/17 The following prescriptions were given: Nystatin 500,000 unit PO 4X/DAY #1 [facility] [place] Primary Care Physician: Prince Shen [Primary Care Provider] - Please follow up with your Primary Care Physician in: in 2 weeks Please Follow Up With: Oriana Aceves MD When: in 2 weeks for F/U Neutropenia& Oesophageal cancer
--- NOTE | 2017-06-19 15:34 | DCINST_ITS ---
- Discharge Diagnoses Current Active Problems: Current Active and Chronic Problems (Last Reviewed 06/17/17 @ 11:02 by Anu Rehman) Hypotension (Acute) Weight loss (Chronic) Pancytopenia (Acute) History of TIAs (Chronic) Esophagus cancer (Chronic) Regional lymph node metastasis present (Chronic) Metastatic cancer to intra-abdominal lymph nodes (Chronic) Bone metastases (Chronic) Liver lesion (Chronic) Chemotherapy induced neutropenia (Chronic) You will use the following diet at home:: Regular Discharge Activity: May Not Drive Allergies/Adverse Reactions: Allergies doxycycline Allergy (Severe, Verified 06/17/17 11:02) Swelling burning/red to face prednisone Allergy (Severe, Verified 06/17/17 14:42) Rash burning/red on face nitrofurantoin [From Macrodantin] Allergy (Mild, Verified 06/17/17 11:02) Rash Medications to take at Discharge Atenolol [Tenormin] 25 mg PO DAILY 03/28/17 Lisinopril [Zestril] 30 mg PO DAILY 03/28/17 Ondansetron HCl [Zofran] 4 mg PO Q8H PRN PRN #30 tab 04/11/17 ProCHLORPERazine [Compazine] 10 mg SL Q4H PRN PRN 04/13/17 Famotidine [Pepcid AC] 10 mg PO DAILY PRN 04/22/17 Loratadine [Claritin] 10 mg PO DAILY 04/22/17 Atorvastatin Calcium [Lipitor] 80 mg PO QHS #30 tab 04/24/17 Sertraline HCl [Zoloft] 25 mg PO QHS 05/06/17 Prochlorperazine Maleate [Compazine] 10 mg PO 4X/DAY PRN PRN #30 tab 05/20/17 Bmx Liquid 10 ml PO 4X/DAY PRN PRN #180 ml 05/27/17 Aspirin [Aspirin, Baby] 81 mg PO DAILY@0800 #0 tab.chew 06/19/17 Clopidogrel Bisulfate [Plavix] 75 mg PO DAILY #30 tab 06/19/17 Nystatin 500,000 unit PO 4X/DAY #1 udc 06/19/17 The following prescriptions were given: Nystatin 500,000 unit PO 4X/DAY #1 [facility] [place] Primary Care Physician: Prince Shen [Primary Care Provider] - Please follow up with your Primary Care Physician in: in 2 weeks Please Follow Up With: Oriana Aceves MD When: in 2 weeks for F/U Neutropenia& Oesophageal cancer
--- NOTE | 2017-06-19 15:34 | DS.PCM_ITS ---
Discharge Date and Diagnosis - Problem List Patient Problems: Active and Suspected Problems (Last Reviewed 06/17/17 @ 11:02 by Anu Rehman) Hypotension (Acute) Pancytopenia (Acute) Date of Admission: 06/17/17 Date of Discharge: 06/19/17 - Primary Discharge Diagnosis Active and Suspected Problems (Last Reviewed 06/17/17 @ 11:02 by Anu Rehman) Hypotension (Acute) Pancytopenia (Acute) syncope due to dehydration and hypotension #2 dehydration/diarrhea: Secondary to poor oral intake and diarrhea. #3 hypokalemia: Chronic, secondary to chemotherapy. #4 Severe anemia and neutropenia due to bone marrow suppression from chemotherapy: #5 chronic anemia: Secondary to cancer and chemotherapy, baseline hemoglobin around 10-12 g/dL. admission hemoglobin is 9.8 g/dL, no evidence of active bleeding. #6 metastatic esophageal cancer: - Secondary Discharge Diagnosis Chronic Problems (Last Reviewed 06/17/17 @ 11:02 by Anu Rehman) Weight loss (Chronic) History of TIAs (Chronic) Esophagus cancer (Chronic) Regional lymph node metastasis present (Chronic) Metastatic cancer to intra-abdominal lymph nodes (Chronic) Bone metastases (Chronic) Liver lesion (Chronic) Hypertension (Chronic) Allergic rhinitis (Chronic) Overweight (BMI 25.0-29.9) (Chronic) Chemotherapy induced neutropenia (Chronic) Hospital Course and Treatment Operations: None Summary of Care Provided: [] This is a 67 years old female patient presented to the emergency room because of syncope, found to have hypotension, neutropenia, hypokalemia and dehydration. #1 syncope due to dehydration and hypotension: This is vasovagal syncope secondary to poor oral intake, diarrhea and patient continued to take her antihypertensive medications. EKG revealed normal sinus rhythm with right bundle branch block, no acute changes or arrhythmias. No focal deficit on physical exam. Blood pressure slightly improved after IV fluids. The patient is being admitted to PCU, cardiac monitoring, IV fluids for hydration with potassium replacement, input output chart, repeat CBC and BMP tomorrow morning, hold antihypertensive medications including atenolol and lisinopril, repeat orthostatic vitals tomorrow morning, encourage oral intake, PT OT evaluation and treatment. Patient was advised to hold lisinopril and atenolol at home when her systolic blood pressures less than 130 mmHg. She has home BP monitor. #2 dehydration/diarrhea: Secondary to poor oral intake and diarrhea. Patient clinically dehydrated, BUN and creatinine are normal. Continue IV fluids, input output chart, hold lisinopril and atenolol, stool for C. difficile is negative and enteric bacteriology panel negative. Patient was well hydrated. #3 hypokalemia: Chronic, secondary to chemotherapy. Potassium is 3.4. No EKG changes, plan to replace potassium with potassium chloride added to IV fluids, patient's electrolytes are optimal level. #4 Severe anemia and neutropenia due to bone marrow suppression from chemotherapy: Has severe anemia, leukopenia/neutropenia: Without fever. It is secondary to chemotherapy. Absolute neutrophil count was 700 and dropped to 400. She has no fever. No evidence of infection, UA is pending. Discussed with the oncologist. Neupogen given. Hemoglobin is stable between 7.9-8.1 g percent. WBC count 1.9 thousand and Neupogen was given. Patient was advised to follow-up with Dr. Aceves in the office after discharge to get prescription for Neulasta 6 mg subcutaneous on 06/20/2017 which is long-lasting and its effect last for 10 days. #5 chronic anemia: Secondary to cancer and chemotherapy, baseline hemoglobin around 10-12 g/dL. admission hemoglobin is 9.8 g/dL, no evidence of active bleeding. Hemoglobin dropped to 7.9 g percent repeat H&H in the evening. No indication for transfusion. #6 metastatic esophageal cancer: With metastasis to bone and liver as well as intra-abdominal lymph nodes, currently chemotherapy. She follows up with Dr. Ferguson. Patient was advised to follow-up with oncologist for CT chest abdomen with IV contrast on June 27. This all is scheduled by Dr. Ferguson #7 hypertension: Pressure is low, plan as above. Hold atenolol and lisinopril. #8 DVT prophylaxis: Pharmacological prophylaxis contraindicated. Discontinue antiplatelet and antithrombotic agent. Discharge medication reconciliation done. Discharge follow-up instructions completed. Total time spent, exact 32 minutes on discharge meds reconciliation, examination , review of imaging and blood test and discussion with the patient on follow-up instructions. Microbiology Past 72 Hours 06/18/17 12:14 Stool Enteric Bacteriology - Final 06/18/17 12:14 Stool C. difficile DNA Amplification - Final Laboratory Results 06/18/17 20:30: Hgb 8.1 L, Hct 25.2 L 06/19/17 04:15: WBC 1.9 L, RBC 2.55 L, Hgb 7.9 L, Hct 24.7 L, MCV 96.9, MCH 31.0 , MCHC 32.0, RDW 16.9 H, RDW Differential 56.5 H, Plt Count 215, MPV 9.1, Immature Gran % (Auto) 0.000, Neut % (Auto) 54.4, Lymph % (Auto) 33.7, [place] % ( Auto) 10.4 H, Eos % (Auto) 0.5, Baso % (Auto) 1.0, Absolute Neuts (auto) 1.1 L, Absolute Lymphs (auto) 0.65 L, Total Counted Not Reportable 06/19/17 04:15: Sodium 145, Potassium 4.3, Chloride 116 H, Carbon Dioxide 24.0, Anion Gap 5, BUN 5 L, Creatinine 0.43 L, Estim Creat Clear Calc 38.68, Est GFR ( MDRD) Af Amer 187, Est GFR (MDRD) Non-Af 155, BUN/Creatinine Ratio 11.6, Glucose 77, Calcium 7.7 L, Magnesium 1.7 Discharge Activity: May Not Drive Home Medications: Medications to take at Discharge Atenolol [Tenormin] 25 mg PO DAILY 03/28/17 Lisinopril [Zestril] 30 mg PO DAILY 03/28/17 Ondansetron HCl [Zofran] 4 mg PO Q8H PRN PRN #30 tab 04/11/17 ProCHLORPERazine [Compazine] 10 mg SL Q4H PRN PRN 04/13/17 Famotidine [Pepcid AC] 10 mg PO DAILY PRN 04/22/17 Loratadine [Claritin] 10 mg PO DAILY 04/22/17 Atorvastatin Calcium [Lipitor] 80 mg PO QHS #30 tab 04/24/17 Sertraline HCl [Zoloft] 25 mg PO QHS 05/06/17 Prochlorperazine Maleate [Compazine] 10 mg PO 4X/DAY PRN PRN #30 tab 05/20/17 Bmx Liquid 10 ml PO 4X/DAY PRN PRN #180 ml 05/27/17 Aspirin [Aspirin, Baby] 81 mg PO DAILY@0800 #0 tab.chew 06/19/17 Clopidogrel Bisulfate [Plavix] 75 mg PO DAILY #30 tab 06/19/17 Nystatin 500,000 unit PO 4X/DAY #1 udc 06/19/17 Following Prescrptions Were Given to Patient: Nystatin 500,000 unit PO 4X/DAY #1 [facility] [place] Care Physician: Prince Shen [Primary Care Provider] - Please follow up with your Primary Care Physician in: in 2 weeks Please Follow Up With: Oriana Aceves MD When: in 2 weeks for F/U Neutropenia& Oesophageal cancer Meaningful Use Info Meaningful Use Diagnoses (Choose all that apply): None applicable Code Visit Inpatient E&M: 79584 Disch Hosp
== END 2017-06-19 17:43 | disposition home or self-care (01) | DRG 641 ==
LOC: ED 12:26 → PCU 14:14
PROVIDERS: Admitting Provider Hospitalist; Emergency Provider Emergency Medicine; Family Provider Family Medicine; PCP Family Medicine; Visit Provider Internal Medicine
DX: E86.0 Dehydration (principal); C77.2 Secondary and unspecified malignant neoplasm of intra-abdominal lymph nodes; I95.9 Hypotension, unspecified; D70.1 Agranulocytosis secondary to cancer chemotherapy; C78.7 Secondary malignant neoplasm of liver and intrahepatic bile duct; C15.9 Malignant neoplasm of esophagus, unspecified; C79.51 Secondary malignant neoplasm of bone; D64.81 Anemia due to antineoplastic chemotherapy; E87.6 Hypokalemia; D63.0 Anemia in neoplastic disease; I10 Essential (primary) hypertension; T45.1X5A Adverse effect of antineoplastic and immunosuppressive drugs, initial encounter; Z87.891 Personal history of nicotine dependence; R19.7 Diarrhea, unspecified; Z86.73 Personal history of transient ischemic attack (TIA), and cerebral infarction without residual deficits
CPT/HCPCS: 36591; 80048; 81001; 83735; 84484; 85014; 85018; 85025; 87493; 87506; 93005; 97116; 97162; 97166; 97802; 99283; 99406; J7030; A4216; J1447; J2405

== ENCOUNTER → 2017-06-27 12:29 | Outpatient (CLI) | payer MEDICARE, SELFPAY ==
--- NOTE | 2017-06-27 12:31 | CT_ITS ---
STUDY: CT ABDOMEN WITH CONTRAST REASON FOR EXAM: Female, 67 years old. Esophageal cancer. Chemotherapy. RADIATION DOSAGE (If Supplied By Facility): CTDIvol = ( 8.40 ) mGy, DLP = ( 402.68 ) mGycm TECHNIQUE: Transaxial images were obtained post I.V. administration of 100CC ml of Isovue 300 contrast, and without oral contrast. Sagittal and coronal images were reconstructed. Individualized dose optimization techniques were used for this CT. COMPARISON: CT of the chest, June 27, 2017. FINDINGS: The visualized lung bases are unremarkable. The visualized portions of the heart are within normal limits. There is a tip of a permacath seen in the right atrium. Normal liver. Normal gallbladder and extrahepatic biliary system. Normal spleen. Normal pancreas. Normal bilateral adrenal glands. There is a 7 mm cyst in the mid right kidney. The right kidney is otherwise unremarkable. Normal left kidney. Normal visualized bilateral ureters. Normal visualized stomach. Normal small intestine. Normal colon. There are surgical clips in the region of the appendix consistent with a prior appendectomy. There is diffuse atherosclerotic calcification of the abdominal aorta with elongation and tortuosity, but without a demonstrated aneurysm. Normal inferior vena cava. Normal retroperitoneum. Normal abdominal wall. Normal osseous structures. CT/Abdomen WITH IV Contrast IMPRESSION: 1. Right renal cyst. 2. Otherwise normal CT of the abdomen. Electronically Signed: Vicente Farnsworth DO at 14:50 EDT Tel [phone], Service support ,
--- NOTE | 2017-06-27 12:31 | CT_ITS ---
STUDY: CT CHEST WITH CONTRAST REASON FOR EXAM: Female, 67 years old. Esophageal cancer. Patient on chemotherapy. RADIATION DOSAGE (If Supplied By Facility): CTDIvol = ( 8.40 ) mGy, DLP = ( 402.68 ) mGycm TECHNIQUE: Transaxial imaging was performed following intravenous administration of 100CC ml of Isovue 300 contrast material. Multiplanar coronal and sagittal images were reformatted. Individualized dose optimization techniques were used for this CT. COMPARISON: Chest, April 22, 2017. FINDINGS: There is a right jugular Port-A-Cath with its tip extending into the right atrium. The lungs are normal. There is no demonstrated pleural abnormality. Normal heart and pericardium. Normal mediastinum. Normal hilar regions. Normal enhanced pulmonary arteries. Minimal atherosclerotic changes of the aortic arch without aneurysm or dissection. The esophagus appears grossly normal in size and wall thickness. There is no evidence of mass, periesophageal lymphadenopathy or dilatation noted. Normal osseous structures. Please refer to a CT of the abdomen performed concurrently and dictated separately for evaluation of the intra-abdominal findings. CT/Chest WITH Contrast IMPRESSION: 1. No evidence for esophageal mass or dilatation. 2. No evidence of mediastinal lymphadenopathy or mass. 3. No pulmonary abnormality. 4. Right jugular Port-A-Cath. Electronically Signed: Vicente Farnsworth DO at 15:40 EDT Tel [phone], Service support ,
== END ==
PROVIDERS: Family Provider Family Medicine; PCP Family Medicine; Visit Provider Internal Medicine Hematology & Oncology
DX: R63.4 Abnormal weight loss (principal); C15.9 Malignant neoplasm of esophagus, unspecified; C77.9 Secondary and unspecified malignant neoplasm of lymph node, unspecified; C77.2 Secondary and unspecified malignant neoplasm of intra-abdominal lymph nodes; C79.51 Secondary malignant neoplasm of bone; Z79.899 Other long term (current) drug therapy
CPT/HCPCS: 71260; 74160; Q9967; A4216

== ENCOUNTER 2017-06-30 13:25 | Inpatient (IN) | payer MEDICARE, SELFPAY ==
[2017-06-30] VITALS (8 sets, daily range): BP systolic 129–147; BP diastolic 61–77; PULSE 57–110; RESP 16–20; TEMP 35.5–36.9; O2SAT 93–97; BMI 23.6; BMI 23.9
--- NOTE | 2017-06-30 13:59 | RAD_ITS ---
STUDY: X-RAY CHEST REASON FOR EXAM: Female, 67 years old. Nausea, vomiting TECHNIQUE: Single frontal view COMPARISON: April 22, 2017 FINDINGS: Right venous port with tip at the mid SVC level. The lungs are clear and expanded. There is mild left basilar atelectasis. Normal size heart. Normal mediastinum and ck. Normal visualized pulmonary arteries. Normal visualized aortic arch and descending thoracic aorta. Normal visualized thoracic spine. Normal visualized ribs, clavicles, and shoulders. There is no demonstrated abnormality of the visualized soft tissue structures of the upper abdomen. RAD/Chest 1 View (Portable) IMPRESSION: Mild left basilar atelectasis. Electronically Signed: Good Gillette DO at 14:27 EDT Tel [phone], Service support ,
[2017-06-30] MEDS: Ondansetron 4 MG/2 ML Vial IV (14:11)
[2017-06-30] MEDS: 0.9% Normal Saline 1,000 ML 1000 ML IV (14:11)
[2017-06-30 14:31] LABS: ALB/GLOB Ratio 0.8 RATIO (0.9-2.4); AST(SGOT) 108 U/L (15-37); Alanine Aminotransfer ALT/SGPT 93 U/L (13-56); Albumin, Serum 2.6 g/dL (3.2-5.0); Alkaline Phosphatase 313 U/L (45-117); Anion Gap 10 (5-15); BUN 8 mg/dL (7-18); BUN/Creat Ratio 10.9 RATIO (10-20); Calcium,Total 7.8 mg/dL (8.5-10.1); Chloride 103 mmol/L (98-107); Creatinine, Serum 0.74 mg/dL (0.55-1.02); EST Glomerular Filtration Rate 83 mL/min (>60); Est Glom Filt Rate - Afr Amer 101 mL/min (>60); Estimated Creatinine Clearance 40.63 ml/min; Globulin 3.4 g/dL (2.2-4.2); Glucose 86 mg/dL (74-106); Lipase 94 U/L (73-393); Potassium 2.9 mmol/L (3.5-5.1); Sodium Level 143 mmol/L (136-145)
[2017-06-30 14:48] LABS: Hematocrit 31.8 % (37-47); Hemoglobin 10.4 g/dl (12.0-15.0); Mean Corp Hgb Conc 32.7 g/gl (32-36); Mean Corpuscular Hgb 30.9 pg (27.0-32.0); Mean Corpuscular Volume 94.4 fL (81-99); Mean Platelet Vol. 10.9 fl (6.2-12.0); Platelet Count 178 K/mm3 (150-450); RBC Distribution Width SD 62.9 fl (35.1-43.9); Red Blood Count 3.37 M/mm3 (4.2-5.4); White Blood Count 43.7 K/mm3 (4.4-11.0)
[2017-06-30 14:49] LABS: Differential Indicated MANUAL DIFF; POSITIVE COUNT YES; POSITIVE DIFFERENTIAL YES; POSITIVE MORPHOLOGY YES
[2017-06-30 15:09] LABS: Anisocytosis 2+; Eosinophil 2 % (0-5); Hypochromasia 1+; Lymphocyte 8 % (19-41); Metamyelocyte 3 % (0-1); Monocyte 1 % (0-10); Neutrophil-Band 7 % (0-5); Neutrophil-Segmented 79 % (47-70); Total Cells Counted 100 (MANUAL DIFF)
[2017-06-30 15:10] LABS: Ovalocyte 1+; Platelet Morphology LARGE
[2017-06-30 15:12] LABS: Absolute Neutrophil Count 37.5 X10^3/uL (2.0-7.7)
--- NOTE | 2017-06-30 15:14 | CT_ITS ---
STUDY: CT ABDOMEN AND PELVIS WITH CONTRAST REASON FOR EXAM: Female, 67 years old. Nausea and vomiting, esophageal cancer RADIATION DOSAGE (If Supplied By Facility): CTDIvol = ( 10.21 ) mGy, DLP = ( 489.57 ) mGycm TECHNIQUE: Transaxial images were obtained from the lower chest to the upper thighs without oral contrast. 100 ml of Isovue 300 contrast was administered. Sagittal and coronal images were reconstructed. Individualized dose optimization techniques were used for this CT. COMPARISON: June 27, 2017 FINDINGS: There is minimal dependent atelectasis in both lung bases. There is no pleural effusion. The heart is normal in size. The liver is unremarkable. There is prominence of the gallbladder wall. There is minimal high density material in the dependent aspect of the gallbladder lumen. The spleen is unremarkable. The pancreas is unremarkable. The adrenal glands are unremarkable. There is a stable benign cyst in the mid pole of the right kidney. There is no dilatation of the collecting system in the right kidney. The left kidney is unremarkable. There is no dilatation of the collecting system in the left kidney. The stomach is unremarkable. The small bowel is unremarkable. There are diverticula in the distal colon without adjacent stranding. The appendix is surgically absent. There are minimal vascular calcifications. The inferior vena cava is unremarkable. The retroperitoneum is unremarkable. There is no free fluid in the abdomen. The urinary bladder is unremarkable. The uterus is normal in size. There is a small enhancing fibroid in the posterior uterine body. There are prominent ovarian veins on the left side which can be seen with pelvic congestion syndrome. There are no abnormal masses in the adnexal regions. There are small phleboliths scattered in the lower pelvis. The soft tissues of the abdominal wall are unremarkable. There are mild degenerative changes in the visualized spine. CT/Abdomen/Pelvis W IV Cont ONLY IMPRESSION: There is gallbladder wall prominence, and there are questionable small stones or sludge in the lumen of the gallbladder. Ultrasound can be obtained for further characterization There is mild diverticulosis of the distal colon. There are no acute bowel abnormalities. There is no ascites, free air, or significant lymphadenopathy. Electronically Signed: Nancy Villanueva MD at 16:17 EDT Tel Direct: [phone], Service support ,
--- NOTE | 2017-06-30 16:02 | ED.VISSUMM ---
- ER Visit Summary Date of Service: 06/30/17 Chief Complaint: Nausea, vomiting, and diarrhea History of Present Illness: The patient is a 67 F with nausea, vomiting, and diarrhea. Symptoms have been increasing over the last 3 days. She has had decreased PO intake over the past week. She is starting to feel dizzy. Anytime she tries to eat or drink something, it comes right back up. She does have a history of esophageal cancer with metastatic disease. She follows with Dr. Aceves. She has a prescription for multiple different nausea medications at home, but they are not helping her. Physical Examination: Afebrile and vital signs unremarkable except for a heart rate of 110. She has dry mucous membranes. Heart tachycardic but regular. Lungs clear. Abdomen soft and nontender. Skin appears slightly pale. Test Results: White count 43.7. Hemoccult was 10.4. Platelets 178. Potassium 2.9. Total bilirubin 1.1. Alk phos 313, ALT 93, and AST 108. Lipase normal. Cultures pending. Urinalysis pending. CT abdomen pelvis pending. Emergency Department Course and Treatment: Patient was treated with fluids and Zofran while awaiting results. Labs showed hypokalemia and she was treated with potassium. She was still feeling very nauseated and would not tolerate PO. CT was ordered, and the results are pending at the time of this dictation. I spoke with her oncologist on-call SOCIAL WORK INSTRUCTOR, Chloé Lea. She told me that the patient recently had Nelasta. The patient has frequent bouts of dehydration and nausea. It is unclear if she is taking her nausea medicine as prescribed. Given that the patient has persistent symptoms as well as hypokalemia, we will continue to resuscitate. Hospitalist was contacted for admission. Oncoming ER doctor will check the results of the CAT scan. Treatment Plan: As above Disposition: Admission Impression: 1. Nausea vomiting 2. Hypokalemia This note was generated with SWEEPi[employer]ation software. It may contain incorrect words, spelling, and punctuation that were not noted in review of the chart prior to signing ED Disposition - Plan for ED Patient: Chief Complaint: Nausea/Vomiting Referrals: Prince Shen [Primary Care Provider] -
--- NOTE | 2017-06-30 16:06 | ED.DCSUM_ITS ---
- ER Visit Summary Date of Service: 06/30/17 Chief Complaint: Nausea, vomiting, and diarrhea History of Present Illness: The patient is a 67 F with nausea, vomiting, and diarrhea. Symptoms have been increasing over the last 3 days. She has had decreased PO intake over the past week. She is starting to feel dizzy. Anytime she tries to eat or drink something, it comes right back up. She does have a history of esophageal cancer with metastatic disease. She follows with Dr. Aceves. She has a prescription for multiple different nausea medications at home, but they are not helping her. Physical Examination: Afebrile and vital signs unremarkable except for a heart rate of 110. She has dry mucous membranes. Heart tachycardic but regular. Lungs clear. Abdomen soft and nontender. Skin appears slightly pale. Test Results: White count 43.7. Hemoccult was 10.4. Platelets 178. Potassium 2.9. Total bilirubin 1.1. Alk phos 313, ALT 93, and AST 108. Lipase normal. Cultures pending. Urinalysis pending. CT abdomen pelvis pending. Emergency Department Course and Treatment: Patient was treated with fluids and Zofran while awaiting results. Labs showed hypokalemia and she was treated with potassium. She was still feeling very nauseated and would not tolerate PO. CT was ordered, and the results are pending at the time of this dictation. I spoke with her oncologist on-call MARBLE POLISHER, Chloé Lea. She told me that the patient recently had Nelasta. The patient has frequent bouts of dehydration and nausea. It is unclear if she is taking her nausea medicine as prescribed. Given that the patient has persistent symptoms as well as hypokalemia, we will continue to resuscitate. Hospitalist was contacted for admission. Oncoming ER doctor will check the results of the CAT scan. Treatment Plan: As above Disposition: Admission Impression: 1. Nausea vomiting 2. Hypokalemia This note was generated with Fanzoation software. It may contain incorrect words, spelling, and punctuation that were not noted in review of the chart prior to signing ED Disposition - Plan for ED Patient: Chief Complaint: Nausea/Vomiting Referrals: Prince Shen [Primary Care Provider] -
[2017-06-30 16:27] LABS: Bacteria 0 SEEN /hpf (None Seen); Mucous, Urine 0 SEEN /hpf (<or=2+)
--- NOTE | 2017-06-30 16:34 | PCM.HP.STD ---
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 The patient is a 67 year old F with past medical history as mentioned above presented to the emergency room because of nausea, vomiting and diarrhea. Her illness started around 1 week ago with diarrhea, liquid stool without blood, 3-4 times daily for the last 7 days, no blood in the stool, associated with intractable nausea and vomiting and without aggravating or relieving factors. She mentioned that she was not able to keep any liquids or food down to her stomach for the last week. She denies fever or chills. She denied abdominal pain. She denied recent use of antibiotics. She denies urinary symptoms. She complained of cough but no sputum production. She had a history of metastatic esophageal cancer and currently, she is on chemotherapy and last session of chemotherapy was around 2 weeks ago. Patient mentioned that she received Neulasta injection after her last chemotherapy but she is not sure. She has a history of hypertension and she has been on lisinopril and seems to be under control. She had a history of TIAs in the past and she has been on aspirin, statins and Plavix. In the emergency room, she was afebrile, tachycardic, blood pressure stable and her pulse ox was normal on room air. Her routine blood work is remarkable for significant leukocytosis with white blood cell count is more than 43,000, potassium of 2.9. Chest x-ray showed no acute findings. His LFT revealed elevated liver transaminases and alkaline phosphatase. Her lipase was normal. CT scan abdomen and pelvis with IV contrast revealed prominent gallbladder wall with questionable small stones. She is being admitted for intractable nausea and vomiting, acute diarrhea illness, elevated LFTs, hypokalemia and suspected leukemoid reaction. Past Medical History Past Medical History (Chronic Problems): Chronic Problems (Last Reviewed 06/28/17 @ 10:56 by Shira Rausch) Weight loss (Chronic) History of TIAs (Chronic) Esophagus cancer (Chronic) Regional lymph node metastasis present (Chronic) Metastatic cancer to intra-abdominal lymph nodes (Chronic) Bone metastases (Chronic) Liver lesion (Chronic) Hypertension (Chronic) Allergic rhinitis (Chronic) Overweight (BMI 25.0-29.9) (Chronic) Chemotherapy induced neutropenia (Chronic) Allergies doxycycline Allergy (Severe, Verified 06/30/17 13:26) Swelling burning/red to face prednisone Allergy (Severe, Verified 06/30/17 13:26) Rash burning/red on face nitrofurantoin [From Macrodantin] Allergy (Mild, Verified 06/30/17 13:26) Rash Home Medications: Ambulatory Orders Medication Instructions Recorded Ondansetron HCl [Zofran] 4 mg PO Q8H PRN PRN #30 tab 04/11/17 proCHLORPERazine tablet [Compazine 10 mg SL Q4H PRN PRN 04/13/17 tablet] Famotidine [Pepcid AC] 10 mg PO DAILY PRN 04/22/17 Loratadine [Claritin] 10 mg PO DAILY 04/22/17 Atorvastatin Calcium [Lipitor] 80 mg PO QHS #30 tab 04/24/17 Sertraline HCl [Zoloft] 25 mg PO QHS 05/06/17 Prochlorperazine Maleate 10 mg PO 4X/DAY PRN PRN #30 tab 05/20/17 [Compazine] Bmx Liquid 10 ml PO 4X/DAY PRN PRN #180 ml 05/27/17 Aspirin [Aspirin, Baby] 81 mg PO DAILY@0800 #0 tab.chew 06/19/17 Clopidogrel Bisulfate [Plavix] 75 mg PO DAILY #30 tab 06/19/17 Nystatin 500,000 unit PO 4X/DAY #1 udc 06/19/17 Lisinopril [Zestril] 10 mg PO DAILY 06/28/17 Metoclopramide [Reglan] 10 mg PO 4X/DAY 30 Days #120 tab 06/28/17 Surgical History: appendectomy, - - Lymph node dissection/Bx, T+A, Appendectomy. Psychiatric History: No pertinent psych hx OFFSET PRINTER History: No pertinent OFFSET PRINTER history Lives: Spouse/ Significant Other Smoking Status: Former smoker Alcohol: None Drugs: None - *Family History Maternal History Items: - - Mother w/ history of brain tumor and brain aneursym. Paternal History Items: - - Father w/ history of severe Alzheimer's diease and Prostate CA. Review of Systems Constitutional: Reports: Anorexia, Weakness. Denies: Chills, Fever Eyes: Denies: Blurred vision, Double vision, Drainage, Redness HEENT: Denies: Difficulty Hearing, Ear Pain, Eye Pain, Nasal Congestion, Sore Throat Cardiovascular: Denies: Chest Pain, Chest Pressure, Chest Tightness, Heaviness, Light Headedness, Palpitations, Syncope Respiratory: Reports: Cough. Denies: Pleuritic Pain, Shortness of Breath, Sputum production, Wheezing Gastrointestinal: Reports: Diarrhea, Nausea, Vomiting. Denies: Abdominal Pain, Constipation, Hematochezia, Melena Genitourinary: Denies: Dysuria, Frequency, Hematuria Musculoskeletal: Denies: Arm Pain, Back Pain, Foot Pain Skin: Denies: Dryness, Rash Neurological: Denies: Balance problems, Double vision, Change in Speech, Slurred speech, Confusion, Focal weakness, Headaches, Incoordination Psychiatric: Denies: Anxiety, Depression Endocrine: Denies: Change in Body Habitus, Polydipsia VTE Information - Inpt Only VTE Present on Admission: No VTE Mechan Device Prophylaxis: None VTE Pharm Prophylaxis ordered?: Yes - Physical Exam General: Alert, Oriented x3, Cooperative, No apparent distress HEENT: Atraumatic, PERRLA, EOMI Oral: No Gingival or Mucosal Lesions/ Ulcerations, Dry Mucosa Neck: Supple, No JVD, Negative Carotid Bruits, Trachea Midline, Thyroid Normal Size and Texture Lungs: Clear to auscultation, No rhonchi, No wheeze, No rales, Diminished Cardiovascular: Regular rate, Regular Rhythm, Normal S1, Normal S2, No murmurs, PMI Normal Abdomen: Bowel Sounds Present, Soft, Non Tender, Non-Distended, No Hepato-splenomegaly Extremities: No clubbing, No cyanosis, No edema Skin: No rashes, No breakdown Lymphatic: No Cervical, Supraclavicular, or Inguinal Adenopathy Neurological: Cranial nerves II-XII grossly intact, Motor Exam 5/5 strength throughout Psych/Mental Status: Normal Affect, Appropriate, Alert and oriented to time, place, person, mood and affect Vital Signs Temp Pulse Resp BP Pulse Ox 96 F L 99 16 129/63 H 97 06/30/17 16:10 06/30/17 16:10 06/30/17 16:10 06/30/17 16:10 06/30/17 16:01 Oxygen Delivery Method Room Air Weight: 125 lb 0.034 oz Body Mass Index (BMI) 23.6 Finger Stick Blood Glucose 170 Laboratory Tests Past 24 Hrs 06/30/17 06/30/17 06/30/17 13:43 13:43 16:20 WBC 43.7 H* RBC 3.37 L Hgb 10.4 L Hct 31.8 L MCV 94.4 MCH 30.9 MCHC 32.7 RDW 19.0 H RDW Differential 62.9 H Plt Count 178 MPV 10.9 Neut % (Auto) Not Reportable Absolute Neuts (auto) 37.5 H Absolute Lymphs (auto) 3.50 Total Counted 100 Neutrophils % (Manual) 79 H Band Neutrophils % 7 H Lymphocytes % (Manual) 8 L Monocytes % (Manual) 1 Eosinophils % (Manual) 2 Metamyelocytes % 3 H Diff Path Review May foll Plt Morphology Comment LARGE Hypochromasia 1+ Anisocytosis 2+ Ovalocytes 1+ Sodium 143 Potassium 2.9 L Chloride 103 Carbon Dioxide 30.0 Anion Gap 10 BUN 8 Creatinine 0.74 Estim Creat Clear Calc 40.63 Est GFR (MDRD) Af Amer 101 Est GFR (MDRD) Non-Af 83 BUN/Creatinine Ratio 10.9 Glucose 86 Calcium 7.8 L Total Bilirubin 1.10 H AST 108 H ALT 93 H Alkaline Phosphatase 313 H Total Protein 6.0 L Albumin 2.6 L Globulin 3.4 Albumin/Globulin Ratio 0.8 L Lipase 94 Urine Color Pending Urine Clarity Pending Urine pH Pending Ur Specific [place] Pending Urine Protein Pending Urine Glucose (UA) Pending Urine Ketones Pending Urine Occult Blood Pending Urine Nitrite Pending Urine Bilirubin Pending Urine Urobilinogen Pending Ur Leukocyte Esterase Pending Urine RBC Pending Urine WBC Pending Ur Squamous Epith Cells Pending Urine Bacteria Pending Urine Mucus Pending Clinical Impression(s) from Imaging Studies Chest X-Ray 06/30/17 13:59 IMPRESSION: Mild left basilar atelectasis. Electronically Signed: Good Gillette DO at 14:27 EDT Tel [phone], Service support , Abdomen/Pelvis CT 06/30/17 15:14 IMPRESSION: There is gallbladder wall prominence, and there are questionable small stones or sludge in the lumen of the gallbladder. Ultrasound can be obtained for further characterization There is mild diverticulosis of the distal colon. There are no acute bowel abnormalities. There is no ascites, free air, or significant lymphadenopathy. Electronically Signed: Nancy Villanueva MD at 16:17 EDT Tel Direct: [phone], Service support , Assessment/Plan This is a 67 years old female patient presented to the emergency room because of nausea, vomiting and diarrhea for the last week and she was found to have significant leukocytosis as well as hypokalemia and elevated LFT. #1 intractable nausea and vomiting/acute diarrheal illness: Could be due to viral gastroenteritis, chemotherapy or leukemoid reaction. Other possibility is cholecystitis or gallstones although patient has no right upper quadrant abdominal pain. Patient denied recent use of antibiotics. CT scan abdomen and pelvis reviewed, findings noted. Plan: Admit to [facility] floor, cardiac monitoring, clear liquids and advance diet as tolerated, IV fluids, replace electrolytes as appropriate, IV antiemetics, stool for C. difficile, stool for enteric pathogens, repeat CBC and CMP tomorrow morning, PT OT evaluation and treatment. #2 elevated LFT: This is new and acute, LFT was normal one month ago. Her liver transaminases are slightly elevated as well as alkaline phosphatase, total bilirubin slightly elevated. CT scan abdomen revealed prominent gallbladder wall with possible small stones. Lipase is normal. Patient does have metastatic liver lesions due to esophageal cancer but her LFT was normal previously. Plan: Ultrasound liver and gallbladder, repeat CMP and lipase tomorrow morning. #3 hypokalemia: Likely because of acute diarrhea. Plan to replace potassium with IV potassium chloride, check serum magnesium and phosphorus and replace as appropriate. #4 neutrophilic leukocytosis/suspected leukemoid reaction: Patient mentioned that she received Neulasta injection around 2 weeks ago and she is not sure. She is afebrile, chest x-ray showed no pneumonia. CT scan abdomen and pelvis revealed no evidence of acute infectious process. Urine analysis revealed no evidence of acute cystitis. Plan: IV fluids, IV antiemetics, blood culture, urine culture, repeat CBC tomorrow morning, oncology consult. No indication for IV antibiotics. 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 Plan for oncology consult. #6 hypertension: Blood pressure stable, continue lisinopril. 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 Admission hemoglobin is 10.4 g/dL, stable at baseline. #8 history of TIA: Continue aspirin, Plavix and statins. #9 DVT prophylaxis: Subcu Lovenox. This note was generated with [email or web address] dictation software. It may contain incorrect words, spelling, and punctuation that were not noted in checking the note before signing. Code Visit Inpatient E&M: 89353 Init Hosp L3
[2017-06-30 16:35] LABS: Color, Urine Yellow (Yellow); Glucose, Dipstick Normal (Normal); Ketone-Dipstick 15 mg/dl (Negative); Leukocyte Esterase-Dipstick 25 /ul (Negative); Nitrite-Dipstick Negative (Negative); Occult Blood-Urine 10 /ul (Negative); Protein-Dipstick 15 mg/dl (Negative); Urine Bilirubin Dipstick Negative (Negative); Urine Clarity Clear (Clear); Urine Urobilinogen Normal (Normal)
--- NOTE | 2017-06-30 16:39 | HP.PCM_ITS ---
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 The patient is a 67 year old F with past medical history as mentioned above presented to the emergency room because of nausea, vomiting and diarrhea. Her illness started around 1 week ago with diarrhea, liquid stool without blood, 3- 4 times daily for the last 7 days, no blood in the stool, associated with intractable nausea and vomiting and without aggravating or relieving factors. She mentioned that she was not able to keep any liquids or food down to her stomach for the last week. She denies fever or chills. She denied abdominal pain. She denied recent use of antibiotics. She denies urinary symptoms. She complained of cough but no sputum production. She had a history of metastatic esophageal cancer and currently, she is on chemotherapy and last session of chemotherapy was around 2 weeks ago. Patient mentioned that she received Neulasta injection after her last chemotherapy but she is not sure. She has a history of hypertension and she has been on lisinopril and seems to be under control. She had a history of TIAs in the past and she has been on aspirin, statins and Plavix. In the emergency room, she was afebrile, tachycardic, blood pressure stable and her pulse ox was normal on room air. Her routine blood work is remarkable for significant leukocytosis with white blood cell count is more than 43,000, potassium of 2.9. Chest x-ray showed no acute findings. His LFT revealed elevated liver transaminases and alkaline phosphatase. Her lipase was normal. CT scan abdomen and pelvis with IV contrast revealed prominent gallbladder wall with questionable small stones. She is being admitted for intractable nausea and vomiting, acute diarrhea illness, elevated LFTs, hypokalemia and suspected leukemoid reaction. Past Medical History Past Medical History (Chronic Problems): Chronic Problems (Last Reviewed 06/28/17 @ 10:56 by Shira Rausch) Weight loss (Chronic) History of TIAs (Chronic) Esophagus cancer (Chronic) Regional lymph node metastasis present (Chronic) Metastatic cancer to intra-abdominal lymph nodes (Chronic) Bone metastases (Chronic) Liver lesion (Chronic) Hypertension (Chronic) Allergic rhinitis (Chronic) Overweight (BMI 25.0-29.9) (Chronic) Chemotherapy induced neutropenia (Chronic) Allergies doxycycline Allergy (Severe, Verified 06/30/17 13:26) Swelling burning/red to face prednisone Allergy (Severe, Verified 06/30/17 13:26) Rash burning/red on face nitrofurantoin [From Macrodantin] Allergy (Mild, Verified 06/30/17 13:26) Rash Home Medications: Ambulatory Orders Medication Instructions Recorded Ondansetron HCl [Zofran] 4 mg PO Q8H PRN PRN #30 tab 04/11/17 proCHLORPERazine tablet [Compazine 10 mg SL Q4H PRN PRN 04/13/17 tablet] Famotidine [Pepcid AC] 10 mg PO DAILY PRN 04/22/17 Loratadine [Claritin] 10 mg PO DAILY 04/22/17 Atorvastatin Calcium [Lipitor] 80 mg PO QHS #30 tab 04/24/17 Sertraline HCl [Zoloft] 25 mg PO QHS 05/06/17 Prochlorperazine Maleate 10 mg PO 4X/DAY PRN PRN #30 tab 05/20/17 [Compazine] Bmx Liquid 10 ml PO 4X/DAY PRN PRN #180 ml 05/27/17 Aspirin [Aspirin, Baby] 81 mg PO DAILY@0800 #0 tab.chew 06/19/17 Clopidogrel Bisulfate [Plavix] 75 mg PO DAILY #30 tab 06/19/17 Nystatin 500,000 unit PO 4X/DAY #1 udc 06/19/17 Lisinopril [Zestril] 10 mg PO DAILY 06/28/17 Metoclopramide [Reglan] 10 mg PO 4X/DAY 30 Days #120 tab 06/28/17 Surgical History: appendectomy, - - Lymph node dissection/Bx, T+A, Appendectomy. 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 Paternal History Items: - - Father w/ history of severe Alzheimer's diease and Prostate CA. Review of Systems Constitutional: Reports: Anorexia, Weakness. Denies: Chills, Fever Eyes: Denies: Blurred vision, Double vision, Drainage, Redness HEENT: Denies: Difficulty Hearing, Ear Pain, Eye Pain, Nasal Congestion, Sore Throat Cardiovascular: Denies: Chest Pain, Chest Pressure, Chest Tightness, Heaviness, Light Headedness, Palpitations, Syncope Respiratory: Reports: Cough. Denies: Pleuritic Pain, Shortness of Breath, Sputum production, Wheezing Gastrointestinal: Reports: Diarrhea, Nausea, Vomiting. Denies: Abdominal Pain, Constipation, Hematochezia, Melena Genitourinary: Denies: Dysuria, Frequency, Hematuria Musculoskeletal: Denies: Arm Pain, Back Pain, Foot Pain Skin: Denies: Dryness, Rash Neurological: Denies: Balance problems, Double vision, Change in Speech, Slurred speech, Confusion, Focal weakness, Headaches, Incoordination Psychiatric: Denies: Anxiety, Depression Endocrine: Denies: Change in Body Habitus, Polydipsia VTE Information - Inpt Only VTE Present on Admission: No VTE Mechan Device Prophylaxis: None VTE Pharm Prophylaxis ordered?: Yes - Physical Exam General: Alert, Oriented x3, Cooperative, No apparent distress HEENT: Atraumatic, PERRLA, EOMI Oral: No Gingival or Mucosal Lesions/ Ulcerations, Dry Mucosa Neck: Supple, No JVD, Negative Carotid Bruits, Trachea Midline, Thyroid Normal Size and Texture Lungs: Clear to auscultation, No rhonchi, No wheeze, No rales, Diminished Cardiovascular: Regular rate, Regular Rhythm, Normal S1, Normal S2, No murmurs, PMI Normal Abdomen: Bowel Sounds Present, Soft, Non Tender, Non-Distended, No Hepato- splenomegaly Extremities: No clubbing, No cyanosis, No edema Skin: No rashes, No breakdown Lymphatic: No Cervical, Supraclavicular, or Inguinal Adenopathy Neurological: Cranial nerves II-XII grossly intact, Motor Exam 5/5 strength throughout Psych/Mental Status: Normal Affect, Appropriate, Alert and oriented to time, place, person, mood and affect Vital Signs Temp Pulse Resp BP Pulse Ox 96 F L 99 16 129/63 H 97 06/30/17 16:10 06/30/17 16:10 06/30/17 16:10 06/30/17 16:10 06/30/17 16:01 Oxygen Delivery Method Room Air Weight: 125 lb 0.034 oz Body Mass Index (BMI) 23.6 Finger Stick Blood Glucose 170 Laboratory Tests Past 24 Hrs 06/30/17 06/30/17 06/30/17 13:43 13:43 16:20 WBC 43.7 H* RBC 3.37 L Hgb 10.4 L Hct 31.8 L MCV 94.4 MCH 30.9 MCHC 32.7 RDW 19.0 H RDW Differential 62.9 H Plt Count 178 MPV 10.9 Neut % (Auto) Not Reportable Absolute Neuts (auto) 37.5 H Absolute Lymphs (auto) 3.50 Total Counted 100 Neutrophils % (Manual) 79 H Band Neutrophils % 7 H Lymphocytes % (Manual) 8 L Monocytes % (Manual) 1 Eosinophils % (Manual) 2 Metamyelocytes % 3 H Diff Path Review May foll Plt Morphology Comment LARGE Hypochromasia 1+ Anisocytosis 2+ Ovalocytes 1+ Sodium 143 Potassium 2.9 L Chloride 103 Carbon Dioxide 30.0 Anion Gap 10 BUN 8 Creatinine 0.74 Estim Creat Clear Calc 40.63 Est GFR (MDRD) Af Amer 101 Est GFR (MDRD) Non-Af 83 BUN/Creatinine Ratio 10.9 Glucose 86 Calcium 7.8 L Total Bilirubin 1.10 H AST 108 H ALT 93 H Alkaline Phosphatase 313 H Total Protein 6.0 L Albumin 2.6 L Globulin 3.4 Albumin/Globulin Ratio 0.8 L Lipase 94 Urine Color Pending Urine Clarity Pending Urine pH Pending Ur Specific [place] Pending Urine Protein Pending Urine Glucose (UA) Pending Urine Ketones Pending Urine Occult Blood Pending Urine Nitrite Pending Urine Bilirubin Pending Urine Urobilinogen Pending Ur Leukocyte Esterase Pending Urine RBC Pending Urine WBC Pending Ur Squamous Epith Cells Pending Urine Bacteria Pending Urine Mucus Pending Clinical Impression(s) from Imaging Studies Chest X-Ray 06/30/17 13:59 IMPRESSION: Mild left basilar atelectasis. Electronically Signed: Good Gillette DO at 14:27 EDT Tel [phone], Service support , Abdomen/Pelvis CT 06/30/17 15:14 IMPRESSION: There is gallbladder wall prominence, and there are questionable small stones or sludge in the lumen of the gallbladder. Ultrasound can be obtained for further characterization There is mild diverticulosis of the distal colon. There are no acute bowel abnormalities. There is no ascites, free air, or significant lymphadenopathy. Electronically Signed: Nancy Villanueva MD at 16:17 EDT Tel Direct: [phone], Service support , Assessment/Plan This is a 67 years old female patient presented to the emergency room because of nausea, vomiting and diarrhea for the last week and she was found to have significant leukocytosis as well as hypokalemia and elevated LFT. #1 intractable nausea and vomiting/acute diarrheal illness: Could be due to viral gastroenteritis, chemotherapy or leukemoid reaction. Other possibility is cholecystitis or gallstones although patient has no right upper quadrant abdominal pain. Patient denied recent use of antibiotics. CT scan abdomen and pelvis reviewed, findings noted. Plan: Admit to [facility] floor, cardiac monitoring, clear liquids and advance diet as tolerated, IV fluids, replace electrolytes as appropriate, IV antiemetics, stool for C. difficile, stool for enteric pathogens, repeat CBC and CMP tomorrow morning, PT OT evaluation and treatment. #2 elevated LFT: This is new and acute, LFT was normal one month ago. Her liver transaminases are slightly elevated as well as alkaline phosphatase, total bilirubin slightly elevated. CT scan abdomen revealed prominent gallbladder wall with possible small stones. Lipase is normal. Patient does have metastatic liver lesions due to esophageal cancer but her LFT was normal previously. Plan: Ultrasound liver and gallbladder, repeat CMP and lipase tomorrow morning. #3 hypokalemia: Likely because of acute diarrhea. Plan to replace potassium with IV potassium chloride, check serum magnesium and phosphorus and replace as appropriate. #4 neutrophilic leukocytosis/suspected leukemoid reaction: Patient mentioned that she received Neulasta injection around 2 weeks ago and she is not sure. She is afebrile, chest x-ray showed no pneumonia. CT scan abdomen and pelvis revealed no evidence of acute infectious process. Urine analysis revealed no evidence of acute cystitis. Plan: IV fluids, IV antiemetics, blood culture, urine culture, repeat CBC tomorrow morning, oncology consult. No indication for IV antibiotics. 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 Plan for oncology consult. #6 hypertension: Blood pressure stable, continue lisinopril. 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 Admission hemoglobin is 10.4 g/dL, stable at baseline. #8 history of TIA: Continue aspirin, Plavix and statins. #9 DVT prophylaxis: Subcu Lovenox. This note was generated with [employer] dictation software. It may contain incorrect words, spelling, and punctuation that were not noted in checking the note before signing. Code Visit Inpatient E&M: 43739 Init Hosp L3
[2017-06-30 16:41] LABS: Red Blood Cells-Urine 0-5 SEEN /hpf (0-5); Squamous Epithelial Cells - UA 0-5 SEEN /hpf (5-10); White Blood Cells 0-5 SEEN /hpf (0-5)
[2017-06-30 17:03] LABS: Magnesium 1.8 mg/dL (1.6-2.6); Phosphorus 3.4 mg/dL (2.5-4.9)
[2017-06-30] MEDS: 0.9% Normal Saline 1,000 ML 100 ML IV (17:03)
[2017-06-30] MEDS: Loratadine 10 MG Tablet PO (17:53)
[2017-06-30] MEDS: Lisinopril 10 MG Tablet PO (17:53)
[2017-06-30] MEDS: Clopidogrel Bisulfate 75 MG Tablet PO (17:53)
[2017-06-30] MEDS: Aspirin 81 MG TAB.CHEW PO (17:53)
[2017-06-30] MEDS: Atorvastatin Calcium 80 MG Tablet PO (21:42)
[2017-06-30] MEDS: Sertraline 50 MG Tablet 25 MG PO (21:42)
[2017-06-30] MEDS: NYSTATIN 500,000 UNIT/5 ML UDC 500000 UNIT PO (21:42)
[2017-07-01] VITALS (8 sets, daily range): BP systolic 131–136; BP diastolic 68–86; PULSE 85–93; RESP 16–18; TEMP 36.9–37.2; O2SAT 94–99
[2017-07-01] MEDS: 0.9% Normal Saline 1,000 ML 100 ML IV (03:00)
[2017-07-01 06:02] LABS: Hematocrit 27.4 % (37-47); Hemoglobin 8.8 g/dl (12.0-15.0); Mean Corp Hgb Conc 32.1 g/gl (32-36); Mean Corpuscular Hgb 30.8 pg (27.0-32.0); Mean Corpuscular Volume 95.8 fL (81-99); Mean Platelet Vol. 10.2 fl (6.2-12.0); Platelet Count 157 K/mm3 (150-450); RBC Distribution Width CV 19.1 % (11.6-14.6); RBC Distribution Width SD 62.9 fl (35.1-43.9); Red Blood Count 2.86 M/mm3 (4.2-5.4)
[2017-07-01 06:06] LABS: Differential Indicated MANUAL DIFF; POSITIVE COUNT YES; POSITIVE DIFFERENTIAL YES; POSITIVE MORPHOLOGY YES; White Blood Count 31.4 K/mm3 (4.4-11.0)
[2017-07-01 06:14] LABS: Eosinophil 1 % (0-5); Lymphocyte 8 % (19-41); Metamyelocyte 3 % (0-1); Monocyte 2 % (0-10); Myelocyte 1 (0-0); Neutrophil-Band 3 % (0-5); Neutrophil-Segmented 82 % (47-70); Platelet Estimate ADEQUATE (ADEQ); Total Cells Counted 100 (MANUAL DIFF); Toxic Granulation 1+
[2017-07-01 06:15] LABS: Absolute Lymphocyte Count 2.51 X10^3/ul (0.83-4.51); Absolute Neutrophil Count 26.7 X10^3/uL (2.0-7.7); Lymphocyte # 2.51 X10^3/ul (4.0); Neutrophil # 26.67 X10^3/uL (2.7-7.7); Red Cell Morphology NORM C+C NORMAL (NORM C&C)
[2017-07-01 06:22] LABS: ALB/GLOB Ratio 0.8 RATIO (0.9-2.4); AST(SGOT) 96 U/L (15-37); Alanine Aminotransfer ALT/SGPT 78 U/L (13-56); Alkaline Phosphatase 237 U/L (45-117); Anion Gap 10 (5-15); BUN 6 mg/dL (7-18); BUN/Creat Ratio 9.2 RATIO (10-20); Calcium,Total 7.3 mg/dL (8.5-10.1); Chloride 109 mmol/L (98-107); Creatinine, Serum 0.65 mg/dL (0.55-1.02); EST Glomerular Filtration Rate 96 mL/min (>60); Est Glom Filt Rate - Afr Amer 116 mL/min (>60); Estimated Creatinine Clearance 40.63 ml/min; Globulin 2.6 g/dL (2.2-4.2); Glucose 78 mg/dL (74-106); Lipase 89 U/L (73-393); Potassium 3.6 mmol/L (3.5-5.1); Protein, Total 4.6 g/dL (6.4-8.2); Sodium Level 147 mmol/L (136-145)
--- NOTE | 2017-07-01 07:34 | US_ITS ---
STUDY: ABDOMINAL ULTRASOUND - RIGHT UPPER QUADRANT REASON FOR VISIT: Female, 67 years old. Abnormal gallbladder on CT TECHNIQUE: Transverse and longitudinal imaging of the right upper quadrant was performed using real-time ultrasound. COMPARISON: CT abdomen and pelvis dated June 30, 2017 FINDINGS: Liver: The liver measures 14 cm. There is increased echogenicity of the liver. The direction of portal flow is hepatopetal. There is no demonstrated mass in the liver. Gallbladder: The gallbladder is normal in size. The gallbladder wall measures 3.2 mm. There is a negative sonographic Ramos's sign. There is no demonstrated pericholecystic fluid. There is a single echogenic focus in the lumen of the gallbladder with posterior shadowing. This measures up to 1.5 cm in size. Common Bile Duct (C.B.D.): The common bile duct measures 3.1 mm. Pancreas: The visualized pancreas is within normal limits. There is no demonstrated mass in the pancreas. Right Kidney: The right kidney measures 9.7 cm. The right cortex measures 1.1 cm. There are small benign cysts in the right kidney. There is no dilatation of the collecting system. There is no demonstrated free fluid. US/Abdomen Limited IMPRESSION: There is a single gallstone seen in the lumen of the gallbladder measuring up to 1.5 cm in size. There is mild gallbladder wall prominence but no ultrasound evidence of pericholecystic fluid. There is no biliary ductal dilatation. There is mild fatty infiltration of the liver. Electronically Signed: Nancy Villanueva MD at 10:36 EDT Tel Direct: [phone], Service support ,
[2017-07-01] MEDS: NYSTATIN 500,000 UNIT/5 ML UDC 500000 UNIT PO ×2 (08:54→20:35)
[2017-07-01] MEDS: Loratadine 10 MG Tablet PO (08:54)
[2017-07-01] MEDS: Clopidogrel Bisulfate 75 MG Tablet PO (08:54)
[2017-07-01] MEDS: Lisinopril 10 MG Tablet PO (08:54)
[2017-07-01] MEDS: Aspirin 81 MG TAB.CHEW PO (08:54)
[2017-07-01] MEDS: Ondansetron 4 MG/2 ML Vial IV (09:01)
[2017-07-01] MEDS: 0.45% Normal Saline 1,000 ML 75 ML IV ×2 (09:01→23:33)
--- NOTE | 2017-07-01 09:20 | PN_ITS ---
Subjective: Chief complaint: Follow-up after admission for intractable nausea and vomiting, acute diarrhea illness, neutrophilic leukocytosis and hypokalemia. Patient seen and examined. No acute events overnight. Nausea and vomiting improved. She has no more significant diarrhea. Denied abdominal pain or fever. Denied right upper quadrant abdominal pain. Her vital signs are stable. - Physical Exam General: Alert, Oriented x3, Cooperative, No apparent distress HEENT: Atraumatic, PERRLA, EOMI Oral: Moist Mucosa, No Gingival or Mucosal Lesions/ Ulcerations Neck: Supple, No JVD, Negative Carotid Bruits, Trachea Midline, Thyroid Normal Size and Texture Lungs: Clear to auscultation, No rhonchi, No wheeze, No rales, Diminished Cardiovascular: Regular rate, Regular Rhythm, Normal S1, Normal S2, PMI Normal Abdomen: Bowel Sounds Present, Soft, Non Tender, Non-Distended, No Hepato- splenomegaly Extremities: No clubbing, No cyanosis, No edema Skin: No rashes, No breakdown Lymphatic: No Cervical, Supraclavicular, or Inguinal Adenopathy Neurological: Cranial nerves II-XII grossly intact, Neuro grossly intact Psych/Mental Status: Normal Affect, Appropriate, Alert and oriented to time, place, person, mood and affect Vital Signs Temp Pulse Resp BP Pulse Ox 98.8 F 86 18 131/68 H 94 07/01/17 08:45 07/01/17 08:45 07/01/17 08:45 07/01/17 08:45 07/01/17 08:45 Oxygen Delivery Method Room Air Weight: 126 lb 8.725 oz Body Mass Index (BMI) 23.9 Intake and Output for Last 24 Hours 06/29/17 06/30/17 07/01/17 23:59 23:59 23:59 Intake Total 241 / 241 1581 / 1581 Output Total 700 / 700 Balance 241 / 241 881 / 881 Laboratory Tests Past 24 Hrs 06/30/17 07/01/17 07/01/17 16:20 05:16 05:16 WBC 31.4 H* RBC 2.86 L Hgb 8.8 L Hct 27.4 L MCV 95.8 MCH 30.8 MCHC 32.1 RDW 19.1 H RDW Differential 62.9 H Plt Count 157 MPV 10.2 Neut % (Auto) Not Reportable Absolute Neuts (auto) 26.7 H Absolute Lymphs (auto) 2.51 Total Counted 100 Neutrophils % (Manual) 82 H Band Neutrophils % 3 Lymphocytes % (Manual) 8 L Monocytes % (Manual) 2 Eosinophils % (Manual) 1 Metamyelocytes % 3 H Myelocytes % 1 H Diff Path Review May foll Toxic Granulation 1+ Platelet Estimate ADEQUATE RBC Morphology NORM C+C Sodium 147 H Potassium 3.6 Chloride 109 H Carbon Dioxide 28.0 Anion Gap 10 BUN 6 L Creatinine 0.65 Estim Creat Clear Calc 40.63 Est GFR (MDRD) Af Amer 116 Est GFR (MDRD) Non-Af 96 BUN/Creatinine Ratio 9.2 L Glucose 78 Calcium 7.3 L Total Bilirubin 0.90 AST 96 H ALT 78 H Alkaline Phosphatase 237 H Total Protein 4.6 L Albumin 2.0 L Globulin 2.6 Albumin/Globulin Ratio 0.8 L Lipase 89 Urine Color Yellow Urine Clarity Clear Urine pH 6.0 Ur Specific [place] 1.010 Urine Protein 15 H Urine Glucose (UA) Normal Urine Ketones 15 H Urine Occult Blood 10 H Urine Nitrite Negative Urine Bilirubin Negative Urine Urobilinogen Normal Ur Leukocyte Esterase 25 H Urine RBC 0-5 SEEN Urine WBC 0-5 SEEN Ur Squamous Epith Cells 0-5 SEEN Urine Bacteria 0 SEEN Urine Mucus 0 SEEN Medical Necessity - Tobacco Use Smoking Status: Former smoker Assessment/Plan This is a 67 years old female patient presented to the emergency room because of nausea, vomiting and diarrhea for the last week and she was found to have significant leukocytosis as well as hypokalemia and elevated LFT. #1 intractable nausea and vomiting/acute diarrheal illness: Could be due to viral gastroenteritis, chemotherapy or leukemoid reaction. Stool for C. difficile and enteric pathogens is pending. Patient symptoms improved, no more nausea or vomiting, tolerating clear liquids and she has less diarrhea. Her vital signs are stable. Plan: Change fluids to 0.45% saline at 75, advance diet to full liquid diet, advance as tolerated. #2 elevated LFT: Liver transaminases and alkaline phosphatase are trending down. Again, patient denies any right upper quadrant abdominal pain, she is afebrile. Ultrasound liver and gallbladder done this morning, awaiting the results. CT scan abdomen revealed prominent gallbladder wall with possible small stones. Lipase is normal. Patient does have metastatic liver lesions due to esophageal cancer but her LFT was normal previously. #3 hypokalemia: Likely because of acute diarrhea. Potassium replaced and corrected, today's potassium is 3.6. Serum magnesium and phosphorus were normal. #4 neutrophilic leukocytosis/suspected leukemoid reaction: Total white blood cell count is down to 31,000 today. Patient remained afebrile. Blood and urine cultures are pending. She is on IV fluids and IV antiemetics as above. She is afebrile, chest x-ray showed no pneumonia. CT scan abdomen and pelvis revealed no evidence of acute infectious process. Urine analysis revealed no evidence of acute cystitis. Plan as above. 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 Awaiting oncology recommendations. #6 hypertension: Blood pressure stable, continue lisinopril. 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 Admission hemoglobin is 10.4 g/dL, today's hemoglobin is 8.8 g/dL, dropped likely because of hemodilution, stable at baseline. #8 history of TIA: Continue aspirin, Plavix and statins. #9 DVT prophylaxis: Subcu Lovenox. This note was generated with [employer] dictation software. It may contain incorrect words, spelling, and punctuation that were not noted in checking the note before signing. Code Visit Inpatient E&M: 81937 Subs Hosp L2
--- NOTE | 2017-07-01 11:12 | CASEMGMT ---
MARCELLA RAMSEY Face to Face with patient for initial transition planning/care coordination assessment. RN BRAULIO introduced self and role at [facility]. Patient sitting in chair, alert and oriented. Patient willing to participate in assessment and is able to answer all questions appropriately. Care providers, pharmacy, and demographics verified. See link attached. Patient wishes to discharge home, denies need for home health at this time. Patient states that she is working with [facility] and [facility] to establish care. Patient states she has no further needs or concerns at this time. CM to follow for discharge planning needs that may arise. Disposition Plan: Patient to discharge home with family support and follow-up plans in place.
[2017-07-01 13:48] LABS: Pathologist Review Reviewed
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
--- NOTE | 2017-07-01 15:59 | MRI_ITS ---
STUDY: MRI BRAIN WITH AND WITHOUT CONTRAST REASON FOR EXAM: Female, 67 years old. Vomiting. TECHNIQUE: Standardized multiplanar fat and water weighted pulse sequences were obtained. 6 ml of Gadavist contrast material was administered intravenously for the contrast portion of the examination. COMPARISON: 23 April 2017 MRI. FINDINGS: There is mild cerebral atrophy with widening of the extra-axial spaces and ventricular dilatation. There are multiple white matter hyperintensities, distributed throughout the deep white matter tracts of the cerebral hemispheres, consistent with moderate chronic white matter ischemic changes. There is no evidence for recent intracranial ischemia or other cause of cytotoxic edema on diffusion weighted imaging (DWI). Normal T2* images of the brain without demonstrated susceptibility artifact. There is no demonstrated hemosiderin stain. Normal bilateral basal ganglia. Normal thalami. There is no extra-axial fluid accumulation. Normal flow voids within the major intracranial circulation suggesting patency by spin echo criteria. Normal venous enhancement. There is no enhancing intra-axial or extra-axial abnormality. Normal sella turcica, pituitary gland, infundibular stalk, optic chiasm and hypothalamus. Normal tectal plate and pineal gland. Normal midbrain, lisa and medulla. Normal cerebellum. Normal basal cisterns. Normal bilateral temporal bones. Normal bilateral internal auditory canals. No demonstrated orbital abnormality, within the constraints of a routine brain study. Normal visualized paranasal sinuses. Normal calvarium and skull base. Normal visualized soft tissue structures. Normal visualized upper cervical spine. MRI/Brain W/WO Contrast IMPRESSION: 1. Senescent microvascular ischemic changes similar to 23 April 2017 with no evidence of acute intracranial bleed, mass or ischemia. No evidence of abnormal enhancement. Electronically Signed: Nick Villareal DO at 23:10 EDT , Service support ,
[2017-07-01] MEDS: 0.9% NaCl VAD Flush 10 ML IV (20:35)
[2017-07-01] MEDS: Atorvastatin Calcium 80 MG Tablet PO (20:35)
[2017-07-01] MEDS: Sertraline 50 MG Tablet 25 MG PO (20:35)
[2017-07-01] MEDS: Zolpidem Tartrate 5 MG Tablet PO (23:34)
[2017-07-02 02:30] VITALS: BP 117/65; PULSE 85; RESP 16; TEMP 36.8; O2SAT 93
[2017-07-02 08:00] VITALS: O2SAT 93
[2017-07-02 08:26] LABS: Pathologist Review Reviewed
[2017-07-02 08:51] VITALS: BP 126/81; PULSE 87; RESP 16; TEMP 37; O2SAT 93
[2017-07-02] MEDS: Aspirin 81 MG TAB.CHEW PO (08:51)
[2017-07-02 09:45] VITALS: PULSE 96
[2017-07-02] MEDS: NYSTATIN 500,000 UNIT/5 ML UDC 500000 UNIT PO ×4 (09:45→21:19)
[2017-07-02] MEDS: Lisinopril 10 MG Tablet PO (09:45)
[2017-07-02] MEDS: Loratadine 10 MG Tablet PO (09:45)
[2017-07-02] MEDS: Enoxaparin 40 MG/0.4 ML Syringe SC (09:45)
[2017-07-02] MEDS: Clopidogrel Bisulfate 75 MG Tablet PO (09:45)
[2017-07-02] MEDS: 0.45% Normal Saline 1,000 ML 75 ML IV (12:18)
[2017-07-02] MEDS: Ondansetron 4 MG/2 ML Vial IV (12:26)
[2017-07-02] MEDS: 0.9% NaCl VAD Flush 10 ML IV (12:26)
--- NOTE | 2017-07-02 12:29 | PCM.PROGNOTE ---
Patient Problems: Active and Suspected Problems (Last Reviewed 06/28/17 @ 10:56 by Shira Rausch) Nausea & vomiting (Acute) Nausea (Acute) Frequent headaches (Acute) Neutrophilic leukocytosis (Acute) DVT prophylaxis (Acute) Subjective: She had persisting nausea and had small amount of emesis this morning. She denied of any abdominal pain. She had diarrhea yesterday, but no bowel movements so far for this morning. - Physical Exam General: Alert, Oriented x3, Cooperative HEENT: Atraumatic Oral: Moist Mucosa Neck: Supple, No JVD, Negative Carotid Bruits, Negative Hepatojugular Reflux, No Nodes, No Nuchal Rigidity Lungs: Clear to auscultation, Normal air movement, No rhonchi, No wheeze, No rales Cardiovascular: Regular rate, Regular Rhythm, Normal S1, Normal S2, No murmurs, No Ectopic Activity Abdomen: Bowel Sounds Present, Soft, Non Tender, Non-Distended, No Hepato-splenomegaly Extremities: No clubbing, No cyanosis, No edema Skin: No rashes, No breakdown Musculoskeletal: No Tenderness to Palpation of Joints or Extremities Lymphatic: No Cervical, Supraclavicular, or Inguinal Adenopathy Neurological: Cranial nerves II-XII grossly intact, Neuro grossly intact Psych/Mental Status: Normal Affect Vital Signs Temp Pulse Resp BP Pulse Ox 98.6 F 96 16 126/81 H 93 07/02/17 08:51 07/02/17 09:45 07/02/17 08:51 07/02/17 08:51 07/02/17 08:51 Oxygen Delivery Method Room Air Weight: 126 lb 8.725 oz Body Mass Index (BMI) 23.9 Intake and Output for Last 24 Hours 06/30/17 07/01/17 07/02/17 23:59 23:59 23:59 Intake Total 241 / 241 3720 / 3720 1055 / 1055 Output Total 700 / 700 Balance 241 / 241 3020 / 3020 1055 / 1055 Microbiology Past 72 Hours 06/30/17 16:20 Urine Culture - Final Urine, Clean Catch Mixed Gram Positive Organisms 07/01/17 06:55 C. difficile DNA Amplification - Final Stool 07/01/17 06:55 Enteric Bacteriology - Final Stool Laboratory Tests Past 24 Hrs 07/01/17 05:16 Diff Path Review Reviewed Diagnostic Data Chest X-Ray 06/30/17 13:59 IMPRESSION: Mild left basilar atelectasis. Electronically Signed: Good Gillette DO at 14:27 EDT Tel [phone], Service support , Abdomen/Pelvis CT 06/30/17 15:14 IMPRESSION: There is gallbladder wall prominence, and there are questionable small stones or sludge in the lumen of the gallbladder. Ultrasound can be obtained for further characterization There is mild diverticulosis of the distal colon. There are no acute bowel abnormalities. There is no ascites, free air, or significant lymphadenopathy. Electronically Signed: Nancy Villanueva MD at 16:17 EDT Tel Direct: [phone], Service support , Abdomen Ultrasound 07/01/17 07:34 IMPRESSION: There is a single gallstone seen in the lumen of the gallbladder measuring up to 1.5 cm in size. There is mild gallbladder wall prominence but no ultrasound evidence of pericholecystic fluid. There is no biliary ductal dilatation. There is mild fatty infiltration of the liver. Electronically Signed: Nancy Villanueva MD at 10:36 EDT Tel Direct: [phone], Service support , Brain MRI 07/01/17 15:59 IMPRESSION: 1. Senescent microvascular ischemic changes similar to 23 April 2017 with no evidence of acute intracranial bleed, mass or ischemia. No evidence of abnormal enhancement. Electronically Signed: Nick Villareal DO at 23:10 EDT , Service support , Medical Necessity - Tobacco Use Smoking Status: Former smoker Assessment/Plan Active and Suspected Problems (Last Reviewed 06/28/17 @ 10:56 by Shira Rausch) Nausea & vomiting (Acute) Nausea (Acute) Frequent headaches (Acute) Neutrophilic leukocytosis (Acute) DVT prophylaxis (Acute) This is a 67 years old female patient presented to the emergency room because of nausea, vomiting and diarrhea for the last week and she was found to have significant leukocytosis as well as hypokalemia and elevated LFT. #1 intractable nausea, vomiting, and diarrhea. C diff and enteric pathogen panel Stool for C. difficile and enteric pathogen panel were negative. Likely due to effect from recent chemotherapy. She is doing somewhat better. She is on soft diet now. Advance as tolerated. Continue IVF support, 0.45NS at 75 ml/hr. #2 elevated LFT: Liver transaminase and alkaline phosphatase are trending down. Again, patient denies any right upper quadrant abdominal pain, she is afebrile. CT scan abdomen revealed prominent gallbladder wall with possible small stones. Lipase is normal. Patient does have metastatic liver lesions due to esophageal cancer but her LFT was normal previously. Ultrasound shows fatty liver, possibly with steatohepatitis. #3 hypokalemia: Due to nausea and vomiting and diarrhea. Corrected. Continue to monitor. #4 neutrophilic leukocytosis: Likely from Neulasta which was given on 06/18/17 per oncology. 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 Appreciate oncology consultation. #6 hypertension: Blood pressure stable, continue lisinopril. 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 Admission hemoglobin is 10.4 g/dL, today's hemoglobin is 8.8 g/dL, dropped likely because of hemodilution, stable at baseline.. Slightly lower after IVF. Monitor CBC. #8 history of TIA: Continue aspirin, Plavix and statins. DVT prophylaxis: SQ Lovenox. GI prophylaxis: PPI po. Patient is full code. Disposition: home in 1 to 2 days. Code Visit Inpatient E&M: 14380 Subs Hosp L2
--- NOTE | 2017-07-02 12:42 | PN_ITS ---
Patient Problems: Active and Suspected Problems (Last Reviewed 06/28/17 @ 10:56 by Shira Rausch) Nausea & vomiting (Acute) Nausea (Acute) Frequent headaches (Acute) Neutrophilic leukocytosis (Acute) DVT prophylaxis (Acute) Subjective: She had persisting nausea and had small amount of emesis this morning. She denied of any abdominal pain. She had diarrhea yesterday, but no bowel movements so far for this morning. - Physical Exam General: Alert, Oriented x3, Cooperative HEENT: Atraumatic Oral: Moist Mucosa Neck: Supple, No JVD, Negative Carotid Bruits, Negative Hepatojugular Reflux, No Nodes, No Nuchal Rigidity Lungs: Clear to auscultation, Normal air movement, No rhonchi, No wheeze, No rales Cardiovascular: Regular rate, Regular Rhythm, Normal S1, Normal S2, No murmurs, No Ectopic Activity Abdomen: Bowel Sounds Present, Soft, Non Tender, Non-Distended, No Hepato- splenomegaly Extremities: No clubbing, No cyanosis, No edema Skin: No rashes, No breakdown Musculoskeletal: No Tenderness to Palpation of Joints or Extremities Lymphatic: No Cervical, Supraclavicular, or Inguinal Adenopathy Neurological: Cranial nerves II-XII grossly intact, Neuro grossly intact Psych/Mental Status: Normal Affect Vital Signs Temp Pulse Resp BP Pulse Ox 98.6 F 96 16 126/81 H 93 07/02/17 08:51 07/02/17 09:45 07/02/17 08:51 07/02/17 08:51 07/02/17 08:51 Oxygen Delivery Method Room Air Weight: 126 lb 8.725 oz Body Mass Index (BMI) 23.9 Intake and Output for Last 24 Hours 06/30/17 07/01/17 07/02/17 23:59 23:59 23:59 Intake Total 241 / 241 3720 / 3720 1055 / 1055 Output Total 700 / 700 Balance 241 / 241 3020 / 3020 1055 / 1055 Microbiology Past 72 Hours 06/30/17 16:20 Urine Culture - Final Urine, Clean Catch Mixed Gram Positive Organisms 07/01/17 06:55 C. difficile DNA Amplification - Final Stool 07/01/17 06:55 Enteric Bacteriology - Final Stool Laboratory Tests Past 24 Hrs 07/01/17 05:16 Diff Path Review Reviewed Diagnostic Data Chest X-Ray 06/30/17 13:59 IMPRESSION: Mild left basilar atelectasis. Electronically Signed: Good Gillette DO at 14:27 EDT Tel [phone], Service support , Abdomen/Pelvis CT 06/30/17 15:14 IMPRESSION: There is gallbladder wall prominence, and there are questionable small stones or sludge in the lumen of the gallbladder. Ultrasound can be obtained for further characterization There is mild diverticulosis of the distal colon. There are no acute bowel abnormalities. There is no ascites, free air, or significant lymphadenopathy. Electronically Signed: Nancy Villanueva MD at 16:17 EDT Tel Direct: [phone], Service support , Abdomen Ultrasound 07/01/17 07:34 IMPRESSION: There is a single gallstone seen in the lumen of the gallbladder measuring up to 1.5 cm in size. There is mild gallbladder wall prominence but no ultrasound evidence of pericholecystic fluid. There is no biliary ductal dilatation. There is mild fatty infiltration of the liver. Electronically Signed: Nancy Villanueva MD at 10:36 EDT Tel Direct: [phone], Service support , Brain MRI 07/01/17 15:59 IMPRESSION: 1. Senescent microvascular ischemic changes similar to 23 April 2017 with no evidence of acute intracranial bleed, mass or ischemia. No evidence of abnormal enhancement. Electronically Signed: Nick Villareal DO at 23:10 EDT , Service support , Medical Necessity - Tobacco Use Smoking Status: Former smoker Assessment/Plan Active and Suspected Problems (Last Reviewed 06/28/17 @ 10:56 by Shira Rausch) Nausea & vomiting (Acute) Nausea (Acute) Frequent headaches (Acute) Neutrophilic leukocytosis (Acute) DVT prophylaxis (Acute) This is a 67 years old female patient presented to the emergency room because of nausea, vomiting and diarrhea for the last week and she was found to have significant leukocytosis as well as hypokalemia and elevated LFT. #1 intractable nausea, vomiting, and diarrhea. C diff and enteric pathogen panel Stool for C. difficile and enteric pathogen panel were negative. Likely due to effect from recent chemotherapy. She is doing somewhat better. She is on soft diet now. Advance as tolerated. Continue IVF support, 0.45NS at 75 ml/hr. #2 elevated LFT: Liver transaminase and alkaline phosphatase are trending down. Again, patient denies any right upper quadrant abdominal pain, she is afebrile. CT scan abdomen revealed prominent gallbladder wall with possible small stones. Lipase is normal. Patient does have metastatic liver lesions due to esophageal cancer but her LFT was normal previously. Ultrasound shows fatty liver, possibly with steatohepatitis. #3 hypokalemia: Due to nausea and vomiting and diarrhea. Corrected. Continue to monitor. #4 neutrophilic leukocytosis: Likely from Neulasta which was given on 06/18/17 per oncology. 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 Appreciate oncology consultation. #6 hypertension: Blood pressure stable, continue lisinopril. 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 Admission hemoglobin is 10.4 g/dL, today's hemoglobin is 8.8 g/dL, dropped likely because of hemodilution, stable at baseline.. Slightly lower after IVF. Monitor CBC. #8 history of TIA: Continue aspirin, Plavix and statins. DVT prophylaxis: SQ Lovenox. GI prophylaxis: PPI po. Patient is full code. Disposition: home in 1 to 2 days. Code Visit Inpatient E&M: 20920 Subs Hosp L2
[2017-07-02 14:05] VITALS: BP 131/77; PULSE 88; RESP 18; TEMP 36.6; O2SAT 95
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
[2017-07-02] MEDS: Loperamide 2 MG Capsule 4 MG PO (16:12)
[2017-07-02 20:21] VITALS: BP 123/63; PULSE 87; RESP 17; TEMP 37; O2SAT 96
[2017-07-02] MEDS: Atorvastatin Calcium 80 MG Tablet PO (21:19)
[2017-07-02] MEDS: Sertraline 50 MG Tablet 25 MG PO (21:19)
[2017-07-03] MEDS: 0.45% Normal Saline 1,000 ML 75 ML IV (01:43)
[2017-07-03 02:13] VITALS: BP 117/75; PULSE 83; RESP 17; TEMP 36.6; O2SAT 96
[2017-07-03 07:20] VITALS: O2SAT 93
[2017-07-03 07:34] VITALS: BP 145/79; PULSE 74; RESP 14; TEMP 36.5; O2SAT 97
[2017-07-03] MEDS: Aspirin 81 MG TAB.CHEW PO (07:38)
--- NOTE | 2017-07-03 08:17 | PCM.PROGNOTE ---
Patient Problems: Active and Suspected Problems (Last Reviewed 06/28/17 @ 10:56 by Shira Rausch) Nausea & vomiting (Acute) Nausea (Acute) Frequent headaches (Acute) Neutrophilic leukocytosis (Acute) DVT prophylaxis (Acute) Subjective: She feels fair. Tolerating full liquid, nausea controlled with antiemetic. No fever, no abdominal pain. - Physical Exam General: Alert, Oriented x3, Cooperative HEENT: Atraumatic Oral: Moist Mucosa Neck: Supple, No JVD, Negative Carotid Bruits, Negative Hepatojugular Reflux, No Nodes, No Nuchal Rigidity Lungs: Clear to auscultation, Normal air movement, No rhonchi, No wheeze, No rales Cardiovascular: Regular rate, Regular Rhythm, Normal S1, Normal S2, No murmurs, No Ectopic Activity Abdomen: Bowel Sounds Present, Soft, Non Tender, Non-Distended, No Hepato-splenomegaly Extremities: No clubbing, No cyanosis, No edema Skin: No rashes, No breakdown Musculoskeletal: No Tenderness to Palpation of Joints or Extremities Lymphatic: No Cervical, Supraclavicular, or Inguinal Adenopathy Neurological: Cranial nerves II-XII grossly intact, Neuro grossly intact Psych/Mental Status: Normal Affect - Physical Exam Vital Signs Temp Pulse Resp BP Pulse Ox 97.7 F L 74 14 145/79 H 97 07/03/17 07:34 07/03/17 07:34 07/03/17 07:34 07/03/17 07:34 07/03/17 07:34 Oxygen Delivery Method Room Air Weight: 126 lb 8.725 oz Body Mass Index (BMI) 23.9 Intake and Output for Last 24 Hours 07/01/17 07/02/17 07/03/17 23:59 23:59 23:59 Intake Total 3720 / 3720 1753 / 1753 1367 / 1367 Output Total 700 / 700 600 / 600 Balance 3020 / 3020 1753 / 1753 767 / 767 Microbiology Past 72 Hours 06/30/17 16:20 Urine Culture - Final Urine, Clean Catch Mixed Gram Positive Organisms 07/01/17 06:55 C. difficile DNA Amplification - Final Stool 07/01/17 06:55 Enteric Bacteriology - Final Stool Laboratory Tests Past 24 Hrs 07/01/17 05:16 Diff Path Review Reviewed Diagnostic Data Chest X-Ray 06/30/17 13:59 IMPRESSION: Mild left basilar atelectasis. Electronically Signed: Good Gillette DO at 14:27 EDT Tel [phone], Service support , Abdomen/Pelvis CT 06/30/17 15:14 IMPRESSION: There is gallbladder wall prominence, and there are questionable small stones or sludge in the lumen of the gallbladder. Ultrasound can be obtained for further characterization There is mild diverticulosis of the distal colon. There are no acute bowel abnormalities. There is no ascites, free air, or significant lymphadenopathy. Electronically Signed: Nancy Villanueva MD at 16:17 EDT Tel Direct: [phone], Service support , Abdomen Ultrasound 07/01/17 07:34 IMPRESSION: There is a single gallstone seen in the lumen of the gallbladder measuring up to 1.5 cm in size. There is mild gallbladder wall prominence but no ultrasound evidence of pericholecystic fluid. There is no biliary ductal dilatation. There is mild fatty infiltration of the liver. Electronically Signed: Nancy Villanueva MD at 10:36 EDT Tel Direct: [phone], Service support , Brain MRI 07/01/17 15:59 IMPRESSION: 1. Senescent microvascular ischemic changes similar to 23 April 2017 with no evidence of acute intracranial bleed, mass or ischemia. No evidence of abnormal enhancement. Electronically Signed: Nick Villareal DO at 23:10 EDT , Service support , Medical Necessity - Tobacco Use Smoking Status: Former smoker Assessment/Plan Active and Suspected Problems (Last Reviewed 06/28/17 @ 10:56 by Shira Rausch) Nausea & vomiting (Acute) Nausea (Acute) Frequent headaches (Acute) Neutrophilic leukocytosis (Acute) DVT prophylaxis (Acute) This is a 67 years old female patient presented to the emergency room because of nausea, vomiting and diarrhea for the last week and she was found to have significant leukocytosis as well as hypokalemia and elevated LFT. #1 intractable nausea, vomiting, and diarrhea. C diff and enteric pathogen panel Stool for C. difficile and enteric pathogen panel were negative. Likely due to effect from recent chemotherapy. She is doing somewhat better. She is on soft diet now. Advance as tolerated. Continue IVF support, 0.45NS at 75 ml/hr. #2 elevated LFT: Liver transaminase and alkaline phosphatase are trending down. Again, patient denies any right upper quadrant abdominal pain, she is afebrile. CT scan abdomen revealed prominent gallbladder wall with possible small stones. Lipase is normal. Patient does have metastatic liver lesions due to esophageal cancer but her LFT was normal previously. Ultrasound shows fatty liver, possibly with steatohepatitis. #3 hypokalemia: Due to nausea and vomiting and diarrhea. Corrected. Continue to monitor. #4 neutrophilic leukocytosis: Likely from Neulasta which was given on 06/18/17 per oncology. 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 Appreciate oncology consultation. #6 hypertension: Blood pressure stable, continue lisinopril. 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 Admission hemoglobin is 10.4 g/dL, today's hemoglobin is 8.8 g/dL, dropped likely because of hemodilution, stable at baseline.. Slightly lower after IVF. Monitor CBC. #8 history of TIA: Continue aspirin, Plavix and statins. #9 Severe protein-calorie malnutrition. With poor oral intake and significant weight loss. Nutrition supplement per dietitian. Control current symptoms of nausea and vomiting. Encourage to increase oral intake. DVT prophylaxis: SQ Lovenox. GI prophylaxis: PPI po. Patient is full code. Disposition: home in 1 to 2 days. Code Visit Inpatient E&M: 91533 Subs Hosp L2
[2017-07-03] MEDS: proMETHazine 25 MG/ML Syringe 6.25 MG IV (08:30)
--- NOTE | 2017-07-03 08:46 | PN_ITS ---
Patient Problems: Active and Suspected Problems (Last Reviewed 06/28/17 @ 10:56 by Shira Rausch) Nausea & vomiting (Acute) Nausea (Acute) Frequent headaches (Acute) Neutrophilic leukocytosis (Acute) DVT prophylaxis (Acute) Subjective: She feels fair. Tolerating full liquid, nausea controlled with antiemetic. No fever, no abdominal pain. - Physical Exam General: Alert, Oriented x3, Cooperative HEENT: Atraumatic Oral: Moist Mucosa Neck: Supple, No JVD, Negative Carotid Bruits, Negative Hepatojugular Reflux, No Nodes, No Nuchal Rigidity Lungs: Clear to auscultation, Normal air movement, No rhonchi, No wheeze, No rales Cardiovascular: Regular rate, Regular Rhythm, Normal S1, Normal S2, No murmurs, No Ectopic Activity Abdomen: Bowel Sounds Present, Soft, Non Tender, Non-Distended, No Hepato- splenomegaly Extremities: No clubbing, No cyanosis, No edema Skin: No rashes, No breakdown Musculoskeletal: No Tenderness to Palpation of Joints or Extremities Lymphatic: No Cervical, Supraclavicular, or Inguinal Adenopathy Neurological: Cranial nerves II-XII grossly intact, Neuro grossly intact Psych/Mental Status: Normal Affect - Physical Exam Vital Signs Temp Pulse Resp BP Pulse Ox 97.7 F L 74 14 145/79 H 97 07/03/17 07:34 07/03/17 07:34 07/03/17 07:34 07/03/17 07:34 07/03/17 07:34 Oxygen Delivery Method Room Air Weight: 126 lb 8.725 oz Body Mass Index (BMI) 23.9 Intake and Output for Last 24 Hours 07/01/17 07/02/17 07/03/17 23:59 23:59 23:59 Intake Total 3720 / 3720 1753 / 1753 1367 / 1367 Output Total 700 / 700 600 / 600 Balance 3020 / 3020 1753 / 1753 767 / 767 Microbiology Past 72 Hours 06/30/17 16:20 Urine Culture - Final Urine, Clean Catch Mixed Gram Positive Organisms 07/01/17 06:55 C. difficile DNA Amplification - Final Stool 07/01/17 06:55 Enteric Bacteriology - Final Stool Laboratory Tests Past 24 Hrs 07/01/17 05:16 Diff Path Review Reviewed Diagnostic Data Chest X-Ray 06/30/17 13:59 IMPRESSION: Mild left basilar atelectasis. Electronically Signed: Good Gillette DO at 14:27 EDT Tel [phone], Service support , Abdomen/Pelvis CT 06/30/17 15:14 IMPRESSION: There is gallbladder wall prominence, and there are questionable small stones or sludge in the lumen of the gallbladder. Ultrasound can be obtained for further characterization There is mild diverticulosis of the distal colon. There are no acute bowel abnormalities. There is no ascites, free air, or significant lymphadenopathy. Electronically Signed: Nancy Villanueva MD at 16:17 EDT Tel Direct: [phone], Service support , Abdomen Ultrasound 07/01/17 07:34 IMPRESSION: There is a single gallstone seen in the lumen of the gallbladder measuring up to 1.5 cm in size. There is mild gallbladder wall prominence but no ultrasound evidence of pericholecystic fluid. There is no biliary ductal dilatation. There is mild fatty infiltration of the liver. Electronically Signed: Nancy Villanueva MD at 10:36 EDT Tel Direct: [phone], Service support , Brain MRI 07/01/17 15:59 IMPRESSION: 1. Senescent microvascular ischemic changes similar to 23 April 2017 with no evidence of acute intracranial bleed, mass or ischemia. No evidence of abnormal enhancement. Electronically Signed: Nick Villareal DO at 23:10 EDT , Service support , Medical Necessity - Tobacco Use Smoking Status: Former smoker Assessment/Plan Active and Suspected Problems (Last Reviewed 06/28/17 @ 10:56 by Shira Rausch) Nausea & vomiting (Acute) Nausea (Acute) Frequent headaches (Acute) Neutrophilic leukocytosis (Acute) DVT prophylaxis (Acute) This is a 67 years old female patient presented to the emergency room because of nausea, vomiting and diarrhea for the last week and she was found to have significant leukocytosis as well as hypokalemia and elevated LFT. #1 intractable nausea, vomiting, and diarrhea. C diff and enteric pathogen panel Stool for C. difficile and enteric pathogen panel were negative. Likely due to effect from recent chemotherapy. She is doing somewhat better. She is on soft diet now. Advance as tolerated. Continue IVF support, 0.45NS at 75 ml/hr. #2 elevated LFT: Liver transaminase and alkaline phosphatase are trending down. Again, patient denies any right upper quadrant abdominal pain, she is afebrile. CT scan abdomen revealed prominent gallbladder wall with possible small stones. Lipase is normal. Patient does have metastatic liver lesions due to esophageal cancer but her LFT was normal previously. Ultrasound shows fatty liver, possibly with steatohepatitis. #3 hypokalemia: Due to nausea and vomiting and diarrhea. Corrected. Continue to monitor. #4 neutrophilic leukocytosis: Likely from Neulasta which was given on 06/18/17 per oncology. 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 Appreciate oncology consultation. #6 hypertension: Blood pressure stable, continue lisinopril. 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 Admission hemoglobin is 10.4 g/dL, today's hemoglobin is 8.8 g/dL, dropped likely because of hemodilution, stable at baseline.. Slightly lower after IVF. Monitor CBC. #8 history of TIA: Continue aspirin, Plavix and statins. #9 Severe protein-calorie malnutrition. With poor oral intake and significant weight loss. Nutrition supplement per dietitian. Control current symptoms of nausea and vomiting. Encourage to increase oral intake. DVT prophylaxis: SQ Lovenox. GI prophylaxis: PPI po. Patient is full code. Disposition: home in 1 to 2 days. Code Visit Inpatient E&M: 59381 Subs Hosp L2
[2017-07-03 09:00] LABS: Hematocrit 30.5 % (37-47); Hemoglobin 9.6 g/dl (12.0-15.0); Mean Corp Hgb Conc 31.5 g/gl (32-36); Mean Corpuscular Hgb 29.7 pg (27.0-32.0); Mean Corpuscular Volume 94.4 fL (81-99); Mean Platelet Vol. 9.9 fl (6.2-12.0); Platelet Count 204 K/mm3 (150-450); RBC Distribution Width CV 18.9 % (11.6-14.6); RBC Distribution Width SD 65.4 fl (35.1-43.9); Red Blood Count 3.23 M/mm3 (4.2-5.4)
[2017-07-03 09:06] LABS: Differential Indicated MANUAL DIFF; POSITIVE COUNT YES; POSITIVE DIFFERENTIAL YES; POSITIVE MORPHOLOGY YES; White Blood Count 30.5 K/mm3 (4.4-11.0)
[2017-07-03 09:25] LABS: ALB/GLOB Ratio 0.7 RATIO (0.9-2.4); AST(SGOT) 95 U/L (15-37); Alanine Aminotransfer ALT/SGPT 93 U/L (13-56); Albumin, Serum 2.2 g/dL (3.2-5.0); Alkaline Phosphatase 236 U/L (45-117); Anion Gap 9 (5-15); BUN 4 mg/dL (7-18); BUN/Creat Ratio 7.9 RATIO (10-20); Calcium,Total 7.1 mg/dL (8.5-10.1); Chloride 108 mmol/L (98-107); Creatinine, Serum 0.51 mg/dL (0.55-1.02); EST Glomerular Filtration Rate 128 mL/min (>60); Est Glom Filt Rate - Afr Amer 155 mL/min (>60); Estimated Creatinine Clearance 40.63 ml/min; Globulin 3.1 g/dL (2.2-4.2); Glucose 96 mg/dL (74-106); Potassium 3.4 mmol/L (3.5-5.1); Protein, Total 5.3 g/dL (6.4-8.2); Sodium Level 143 mmol/L (136-145)
[2017-07-03 09:35] LABS: Lymphocyte 9 % (19-41); Myelocyte 1 (0-0); Neutrophil-Segmented 90 % (47-70); Total Cells Counted 100 (MANUAL DIFF)
[2017-07-03 09:36] LABS: Anisocytosis 1+; Platelet Estimate ADEQUATE (ADEQ); Red Cell Morphology N CHROM NORMAL (NORM C&C)
[2017-07-03 09:37] LABS: Absolute Lymphocyte Count 2.75 X10^3/ul (0.83-4.51); Absolute Neutrophil Count 27.5 X10^3/uL (2.0-7.7)
[2017-07-03] MEDS: Clopidogrel Bisulfate 75 MG Tablet PO (10:27)
[2017-07-03] MEDS: Lisinopril 10 MG Tablet PO (10:27)
[2017-07-03] MEDS: Loratadine 10 MG Tablet PO (10:27)
[2017-07-03] MEDS: Pantoprazole Sodium 20 MG Tablet PO (10:27)
[2017-07-03] MEDS: NYSTATIN 500,000 UNIT/5 ML UDC 500000 UNIT PO (10:27)
[2017-07-03] MEDS: Enoxaparin 40 MG/0.4 ML Syringe SC (10:28)
--- NOTE | 2017-07-03 13:13 | CASEMGMT ---
MARCELLA RAMSEY discussed discharge needs with patient. Patient is requesting script for new shower chair. MARCELLA RAMSEY obtained script for shower chair from hospitalist. Patient preferred to take script with her and warp picker at her preferred DME company. MARCELLA RAMSEY will remain available and plan for a safe discharge.
[2017-07-03 13:30] VITALS: BP 126/72; PULSE 92; RESP 14; TEMP 36.1; O2SAT 94
--- NOTE | 2017-07-03 13:39 | PCM.DC ---
- Discharge Diagnoses Current Active Problems: Current Active and Chronic Problems (Last Reviewed 06/28/17 @ 10:56 by Shira Rausch) Nausea & vomiting (Acute) Nausea (Acute) Frequent headaches (Acute) Neutrophilic leukocytosis (Acute) DVT prophylaxis (Acute) You will use the following diet at home:: No restrictions Your food should be the consistency of: Regular Your liquids should be the consistency of: Regular/Thin Discharge Activity: Return to Normal Activity Allergies/Adverse Reactions: Allergies doxycycline Allergy (Severe, Verified 06/30/17 13:26) Swelling burning/red to face prednisone Allergy (Severe, Verified 06/30/17 13:26) Rash burning/red on face nitrofurantoin [From Macrodantin] Allergy (Mild, Verified 06/30/17 13:26) Rash Medications to take at Discharge Famotidine [Pepcid AC] 10 mg PO DAILY PRN 04/22/17 Loratadine [Claritin] 10 mg PO DAILY 04/22/17 Atorvastatin Calcium [Lipitor] 80 mg PO QHS #30 tab 04/24/17 Sertraline HCl [Zoloft] 25 mg PO QHS 05/06/17 Prochlorperazine Maleate [Compazine] 10 mg PO 4X/DAY PRN PRN #30 tab 05/20/17 Bmx Liquid 10 ml PO 4X/DAY PRN PRN #180 ml 05/27/17 Aspirin [Aspirin, Baby] 81 mg PO DAILY@0800 #0 tab.chew 06/19/17 Clopidogrel Bisulfate [Plavix] 75 mg PO DAILY #30 tab 06/19/17 Nystatin 500,000 unit PO 4X/DAY #1 udc 06/19/17 Lisinopril [Zestril] 10 mg PO DAILY 06/28/17 Metoclopramide [Reglan] 10 mg PO 4X/DAY 30 Days #120 tab 06/28/17 Ondansetron [Zofran Odt] 4 mg PO Q6H PRN PRN #20 tab.rapdis 07/03/17 The following prescriptions were given: Ondansetron [Zofran Odt] 4 mg PO Q6H PRN PRN #20 tab.rapdis PRN Reason: Nausea Primary Care Physician: Prince Shen [Primary Care Provider] - Please follow up with your Primary Care Physician in: in 1 to 2 weeks. Please Follow Up With: Chloé Lea NP-C When: As scheduled on 07/04/17
--- NOTE | 2017-07-03 13:42 | PCM.DC.SUM ---
Discharge Date and Diagnosis - Problem List Patient Problems: Active and Suspected Problems (Last Reviewed 06/28/17 @ 10:56 by Shira Rausch) Nausea & vomiting (Acute) Nausea (Acute) Frequent headaches (Acute) Neutrophilic leukocytosis (Acute) DVT prophylaxis (Acute) Date of Admission: 06/30/17 Date of Discharge: 07/03/17 - Primary Discharge Diagnosis Active and Suspected Problems (Last Reviewed 06/28/17 @ 10:56 by Shira Rausch) Nausea & vomiting (Acute) Nausea (Acute) Frequent headaches (Acute) Neutrophilic leukocytosis (Acute) DVT prophylaxis (Acute) - Secondary Discharge Diagnosis Chronic Problems (Last Reviewed 06/28/17 @ 10:56 by Shira Rausch) Weight loss (Chronic) History of TIAs (Chronic) Esophagus cancer (Chronic) Regional lymph node metastasis present (Chronic) Metastatic cancer to intra-abdominal lymph nodes (Chronic) Bone metastases (Chronic) Liver lesion (Chronic) Hypertension (Chronic) Allergic rhinitis (Chronic) Overweight (BMI 25.0-29.9) (Chronic) Chemotherapy induced neutropenia (Chronic) Severe protein-calorie malnutrition. Hospital Course and Treatment Operations: None Procedures: None Summary of Care Provided: This is a 67 years old female patient presented to the emergency room because of nausea, vomiting and diarrhea for the last week and she was found to have significant leukocytosis as well as hypokalemia and elevated LFT. #1 intractable nausea, vomiting, and diarrhea. C diff and enteric pathogen panel Stool for C. difficile and enteric pathogen panel were negative. Likely due to effect from recent chemotherapy. Diet advanced, tolerated regular consistency meals. Maintenance IVF given during the stay. Plan to discharge home with routine dose of Reglan 10 mg po qid and PRN antiemetics, including Compazine and Zofran ODT prn. #2 elevated LFT: Liver transaminase and alkaline phosphatase are trending down. Again, patient denies any right upper quadrant abdominal pain, she is afebrile. CT scan abdomen revealed prominent gallbladder wall with possible small stones. Lipase is normal. Patient does have metastatic liver lesions due to esophageal cancer but her LFT was normal previously. Ultrasound shows fatty liver, possibly with steatohepatitis. #3 hypokalemia: Due to nausea and vomiting and diarrhea. Corrected. Continue to monitor. #4 neutrophilic leukocytosis: Likely from Neulasta which was given on 06/18/17 per oncology. 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 Appreciate oncology consultation. #6 hypertension: Blood pressure stable, continue lisinopril. 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 Admission hemoglobin is 10.4 g/dL, today's hemoglobin is 8.8 g/dL, dropped likely because of hemodilution, stable at baseline.. Slightly lower after IVF. Monitor CBC. #8 history of TIA: Continue aspirin, Plavix and statins. #9 Severe protein-calorie malnutrition. With poor oral intake and significant weight loss. Nutrition supplement per dietitian. Control current symptoms of nausea and vomiting. Encourage to increase oral intake. DVT prophylaxis: SQ Lovenox. GI prophylaxis: PPI po. Patient is full code. Disposition: home Discharge Diet: No Restrictions Discharge Activity: Return to Normal Activity Home Medications: Medications to take at Discharge Famotidine [Pepcid AC] 10 mg PO DAILY PRN 04/22/17 Loratadine [Claritin] 10 mg PO DAILY 04/22/17 Atorvastatin Calcium [Lipitor] 80 mg PO QHS #30 tab 04/24/17 Sertraline HCl [Zoloft] 25 mg PO QHS 05/06/17 Prochlorperazine Maleate [Compazine] 10 mg PO 4X/DAY PRN PRN #30 tab 05/20/17 Bmx Liquid 10 ml PO 4X/DAY PRN PRN #180 ml 05/27/17 Aspirin [Aspirin, Baby] 81 mg PO DAILY@0800 #0 tab.chew 06/19/17 Clopidogrel Bisulfate [Plavix] 75 mg PO DAILY #30 tab 06/19/17 Nystatin 500,000 unit PO 4X/DAY #1 udc 06/19/17 Lisinopril [Zestril] 10 mg PO DAILY 06/28/17 Metoclopramide [Reglan] 10 mg PO 4X/DAY 30 Days #120 tab 06/28/17 Ondansetron [Zofran Odt] 4 mg PO Q6H PRN PRN #20 tab.rapdis 07/03/17 Following Prescrptions Were Given to Patient: Ondansetron [Zofran Odt] 4 mg PO Q6H PRN PRN #20 tab.rapdis PRN Reason: Nausea Primary Care Physician: Prince Shen [Primary Care Provider] - Please follow up with your Primary Care Physician in: in 1 to 2 weeks. Please Follow Up With: Chloé Lea NP-C When: As scheduled on 07/04/17 Disposition: Home Patient Condition:: Good Medical Necessity - Tobacco Use Smoking Status: Former smoker Meaningful Use Info Meaningful Use Diagnoses (Choose all that apply): None applicable Code Visit Inpatient E&M: 94051 Disch Hosp
[2017-07-05 14:01] LABS: Pathologist Review Reviewed
== END 2017-07-03 15:31 | disposition home or self-care (01) | DRG 393 ==
LOC: ED 14:42 → MS3 16:18
PROVIDERS: Admitting Provider Hospitalist; Emergency Provider Emergency Medicine; Family Provider Family Medicine; PCP Family Medicine; Visit Provider Hospitalist
DX: K52.1 Toxic gastroenteritis and colitis (principal); E43 Unspecified severe protein-calorie malnutrition; C77.2 Secondary and unspecified malignant neoplasm of intra-abdominal lymph nodes; C78.7 Secondary malignant neoplasm of liver and intrahepatic bile duct; C15.4 Malignant neoplasm of middle third of esophagus; C79.51 Secondary malignant neoplasm of bone; D72.828 Other elevated white blood cell count; E87.6 Hypokalemia; Z86.73 Personal history of transient ischemic attack (TIA), and cerebral infarction without residual deficits; Z68.23 Body mass index [BMI] 23.0-23.9, adult; I10 Essential (primary) hypertension; T45.1X5A Adverse effect of antineoplastic and immunosuppressive drugs, initial encounter; R79.89 Other specified abnormal findings of blood chemistry; D64.81 Anemia due to antineoplastic chemotherapy; Z87.891 Personal history of nicotine dependence
CPT/HCPCS: 36415; 70553; 71045; 71260; 74160; 74177; 76705; 80053; 81001; 83690; 83735; 84100; 85025; 87040; 87086; 87088; 87493; 87506; 97110; 97116; 97162; 97166; 97802; 99283; A9585; J7030; Q9967; A4216; G8978; G8979; G8987; G8988; J2405; J3490

== ENCOUNTER 2017-07-15 10:08 | Day surgery (SDC) | payer MEDICARE, SELFPAY ==
[2017-07-15] VITALS (7 sets, daily range): BP systolic 124–130; BP diastolic 58–75; PULSE 81–91; RESP 16–18; TEMP 36.3–37.4; O2SAT 96–100; BMI 24.0
--- NOTE | 2017-07-15 | IMM_PTH ---
PATIENT: TK TUCKER LOC: EN U#:[id number] AGE/SX: 67/F ROOM: RE07/15/[address]: Dr. Zenon Urbina MD : 1950 BED: DIS: 07/15/2017 SPEC #: [id number] RECD: 07/16/17 14:30 STATUS: JUSTICE REQ #: [id number] JUANCARLOS: 07/15/17 00:[address]: Zenon Urbina DEPT: IMMUNOHISTOCHEMISTRY RECD BY: Lisa Squires ENTERED: 07/16/17 14:31 SP TYPE: IMMUNO OTHR DR: Dr. Prince Shen MD Tissues: Esophagus, NOS Procedures: CK5-6 (initial) CK14 (add) KI-67 (add) P16 (add) P40 (add) PHYSICIAN & INSTITUTION [place] [id number] SPECIMEN INFORMATION: Tissue Source: Esophageal biopsy Clinical Info: C15.9 Specimen Number: [id number] CPT code: 68510, 28094 x4 METHODOLOGY: Deparaffinized sections of prefer/formalin-fixed tissue or PAP/DQ stained slides are incubated with monoclonal/polyclonal antibodies/oligonucleotide probes. Localization is made via biotin free immunoperoxidase method. Appropriate controls are performed and reacted as expected. Results on target cell population are indicated in the following table: RESULTS: ANTIBODY / CLONE RESULT P40 (BC28) positive CK5-6 (D5 & 1684) positive CK14 (LL002) positive P16 (E6H4) negative Ki-67 (30-9) positive, moderate These tests were developed and their performance characteristics determined by [facility]. They may not have been cleared or approved by the U.S. Food and Drug Administration. The FDA has determined that such clearance or approval is not necessary. INTERPRETATION: Esophageal biopsy: Fragments of squamous cell carcinoma. AM:jacob 07/17/17 Case has been reviewed in consultation with Dr. Magaña who concurs with the above diagnosis. IDC:[email or web address]
--- NOTE | 2017-07-15 11:02 | ESO_PTH ---
PATIENT: TK TUCKER LOC: EN U#:[id number] AGE/SX: 67/F ROOM: RE07/15/[address]: Dr. Zenon Urbina MD : 1950 BED: DIS: 07/15/2017 SPEC #: [id number] RECD: 07/15/17 15:15 STATUS: JUSTICE ABRAM #: [id number] JUANCARLOS: 07/15/17 11:[address]: Zenon Urbina DEPT: SURGICAL PATHOLOGY RECD BY: Caterina Link ENTERED: 07/15/17 15:15 SP TYPE: JANAE ROSE DR: Dr. 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 AM:jacob 07/16/17 COMMENT Immunohistochemistry ([id number]) supports the above diagnosis. Case has been reviewed in consultation with Dr. Magaña who concurs with the above diagnosis. IDC:[email or web address] MICROSCOPIC DESCRIPTION Slides are reviewed. GROSS DESCRIPTION Received in fixative is one container labeled with the patient's name and designated esophageal biopsy. The specimen consists of multiple irregular fragments of light ivey soft tissue that in aggregate measure 1 x 1 x 0.1 cm. The specimen is totally submitted in one cassette. / RUBEN:jacob 07/15/17 TC:0 CPT: 71819
--- NOTE | 2017-07-15 11:07 | PCM.OPRPT ---
Problem List (1) Esophagus cancer Status: Chronic Qualifiers: Malignant neoplasm of esophagus location: unspecified location Qualified Code(s): C15.9 - Malignant neoplasm of esophagus, unspecified (2) Nausea & vomiting Status: Acute Qualifiers: Vomiting type: unspecified Vomiting Intractability: unspecified Qualified Code(s): R11.2 - Nausea with vomiting, unspecified (3) Epigastric pain Status: Acute Report of Operation Date of Procedure: 07/15/17 Type of Anesthesia:: MAC Anesthesiologist: Jamal Bellamy Description of Procedure: Patient was brought into the endoscopy suite. The back of her throat was sprayed with Cetacaine spray. A bite-block was placed. She was placed in the left lateral decubitus position. She was given graded anesthesia. Scope was inserted in the back of the oropharynx and directed down through the esophagus into the stomach and into the duodenum without difficulty. Operative findings: 1. Duodenum: Normal appearance no mass lesions no ulcerations mucosal all look normal into the second part of the duodenum. 2. Stomach: Normal appearance no mass lesions no ulcerations retroflexion did not show any signs of a hiatal hernia. There are no masses at the GE juncture. 3. Esophagus: Middle esophagus showed residual malignancy. This was biopsied to confirm residual malignancy. It was approximately at 33 cm. It looks significantly smaller than the previous pictures that they had brought with them.. I will see the patient back in 1 week we will get biopsy results at that time. - Admit VTE Documentation VTE Present on Admission: No VTE Mechan Device Prophylaxis: None VTE Pharm Prophylaxis ordered?: No Reason prophylaxis not ordered:: Treatment Not Indicated
== END 2017-07-15 11:57 | disposition home or self-care (01) ==
LOC: EN 10:09 → AC 10:10
PROVIDERS: Family Provider Family Medicine; PCP Family Medicine; Visit Provider Surgery
PROC: 0DJ08ZZ Inspection of Upper Intestinal Tract, Via Natural or Artificial Opening Endoscopic (ICD-10-PCS; CPT 43235; principal; 2017-07-15 11:25)
DX: D00.1 Carcinoma in situ of esophagus (principal); I10 Essential (primary) hypertension; E78.00 Pure hypercholesterolemia, unspecified; R11.2 Nausea with vomiting, unspecified; R10.13 Epigastric pain; Z87.891 Personal history of nicotine dependence; Z79.82 Long term (current) use of aspirin; F32.9 Major depressive disorder, single episode, unspecified; F41.9 Anxiety disorder, unspecified
CPT/HCPCS: 43239; 88305; 88341; 88342; J7120; A4216

== ENCOUNTER → 2017-09-17 10:14 | Outpatient (CLI) | payer MEDICARE, SELFPAY ==
--- NOTE | 2017-09-17 10:18 | NM_ITS ---
CLINICAL: 67-year-old female with history of esophageal carcinoma. WHOLE BODY 99m Tc MDP RADIONUCLIDE BONE SCINTIGRAPHY COMPARISON: CT of the abdomen-pelvis report 06/30/2017, CT of the chest report 06/27/2017 FINDINGS: Following the intravenous administration of 26.0 mCi of 99m Tc MDP, whole body bone images reveal: 1. Increased radiopharmaceutical concentration is identified in the mid cervical spine posteriorly on the left, 12th thoracic vertebra posteriorly on the right, the acromioclavicular, sternoclavicular and glenohumeral compartments of the right shoulder, left wrist, knees bilaterally. 2. The remaining skeletal structures are scintigraphically unremarkable with normal-appearing renal images and urinary bladder activity identified. Prominent uptake is manifest in the right frontal calvarium and proximity to the coronal suture most consistent with a normal variant. NM/Bone Scan Whole Body IMPRESSION: 1. The increase in radiopharmaceutical concentration defined in the cervical and thoracic spine, right shoulder, left wrist, both knees is most consistent with degenerative arthritis. 2. There is no definitive typical scintigraphic evidence of diffuse axial skeletal metastatic disease on the current examination. Electronically Signed: Seamus Lorenzo DO at 11:41 EDT Tel , Service support ,
== END ==
PROVIDERS: Family Provider Family Medicine; PCP Family Medicine; Visit Provider Internal Medicine Hematology & Oncology
DX: C15.9 Malignant neoplasm of esophagus, unspecified (principal); C77.9 Secondary and unspecified malignant neoplasm of lymph node, unspecified; C77.2 Secondary and unspecified malignant neoplasm of intra-abdominal lymph nodes; C79.51 Secondary malignant neoplasm of bone
CPT/HCPCS: 36591; 78306; 80053; 82728; 83540; 83550; 84439; 84443; 85025; A4216

== ENCOUNTER → 2017-09-23 13:12 | Outpatient (CLI) | payer MEDICARE, SELFPAY ==
--- NOTE | 2017-09-23 13:16 | CT_ITS ---
STUDY: CT CHEST WITH CONTRAST REASON FOR EXAM: Female, 67 years old. Esophageal cancer follow-up. History of chemotherapy. RADIATION DOSAGE (If Supplied By Facility): CTDIvol = ( 7.6+5.8+9.5 ) mGy, DLP = ( 602.06 ) mGycm TECHNIQUE: Transaxial imaging was performed following intravenous administration of 100mL ml of Isovue 370 contrast material. Coronal and sagittal 2-D MPR. Individualized dose optimization techniques were used for this CT. COMPARISON: Bone scan 09/17/2017. CT abdomen and pelvis today, and 06/30/2017. CT chest 06/27/2017. FINDINGS: Right-sided PermCath, stable. Supraclavicular: Normal thyroid, no mass or lymphadenopathy. Body wall soft tissues: No acute process. Osseous structures: Thoracic kyphoscoliosis without significant spondylosis. Mild osteopenia. No suspicious lytic or blastic lesions. Upper abdomen: No acute process. Mediastinum: There appears to be mild circumferential thickening of the wall of the proximal to middle 3rd of the esophagus normalizing distally. No discrete lesion is visible. There is no visible reflux. A few small lymph nodes are present in the mediastinum, none pathologically enlarged. Heart: Borderline/mild cardiomegaly with no pericardial effusion. Minimal coronary calcifications. Aorta: Nondilated, minimal atherosclerosis, widely patent cervical arch branching. Pulmonary arteries: Normal. Lungs: The right lung is normal. There are patchy and partially confluent groundglass opacities in the left mid to lower lung. The pattern is relatively stable compared to prior imaging and I suspect this represents atelectasis. The patient may be relatively hypoventilated on the left. Any respiratory splinting? There background polar any features suggesting COPD without elmer features of centrilobular or paraseptal emphysema. CT/Chest WITH Contrast IMPRESSION: No acute cardiopulmonary process. No discrete evidence of esophageal mass. No mediastinal or hilar lymphadenopathy. Mild cardiomegaly. Electronically Signed: Seamus Solano, at 15:58 EDT Tel , Service support ,
--- NOTE | 2017-09-23 13:17 | CT_ITS ---
STUDY: CT ABDOMEN AND PELVIS WITH CONTRAST REASON FOR EXAM: Female, 67 years old. Esophageal cancer follow-up. History of chemotherapy. Prior appendectomy and tubal ligation. RADIATION DOSAGE (If Supplied By Facility): CTDIvol = ( 7.6+5.8+0.5 ) mGy, DLP = ( 602.06 ) mGycm TECHNIQUE: Transaxial images were obtained from the dome of the diaphragm to the symphysis pubis without oral contrast. 100mL ml of Isovue 300 contrast was administered. Sagittal and coronal images were reconstructed. Individualized dose optimization techniques were used for this CT. COMPARISON: CT chest 09/23/2017. CT abdomen and pelvis 06/30/2017, 06/25/2017. FINDINGS: Body wall soft tissues: No acute process. Osseous structures: No acute process. Inferior chest: The lung bases are clear. There is mild cardiomegaly. Distal most esophagus appears normal with no significant hiatal hernia. Hepatobiliary: Normal. Pancreas: No acute process. Spleen: Normal. Adrenal glands: Normal. Urogenital: Benign right renal cyst, Bosniak category 1. Symmetric nephrograms. No atrophy. Normal collecting systems, ureters, urinary bladder, anteverted uterus, ovaries and adnexa with no cul-de-sac free fluid. Pelvic floor and sidewalls and retroperitoneum: No mass or adenopathy. Vasculature: No acute process. Stomach: No acute process. Small bowel and mesentery: No acute process. Large bowel: The appendix is not visible. Unremarkable large bowel and rectum. Free fluid or free air: None. CT/Abdomen/Pelvis W IV Cont ONLY IMPRESSION: No acute abdominopelvic process. Electronically Signed: Seamus Solano, at 15:51 EDT Tel , Service support ,
== END ==
PROVIDERS: Family Provider Family Medicine; PCP Family Medicine; Visit Provider Internal Medicine Hematology & Oncology
DX: C15.9 Malignant neoplasm of esophagus, unspecified (principal); C77.9 Secondary and unspecified malignant neoplasm of lymph node, unspecified; C77.2 Secondary and unspecified malignant neoplasm of intra-abdominal lymph nodes; C79.51 Secondary malignant neoplasm of bone
CPT/HCPCS: 71260; 74177; Q9967; A4216

== ENCOUNTER → 2018-01-27 10:23 | Outpatient (CLI) | payer MEDICARE, SELFPAY ==
--- NOTE | 2018-01-27 10:27 | NM_ITS ---
CLINICAL: 67-year-old female with reported history of esophageal carcinoma. WHOLE BODY 99m Tc MDP RADIONUCLIDE BONE SCINTIGRAPHY COMPARISON: Previous whole body bone scintigraphy study dated 09/17/2017 FINDINGS: Following the intravenous administration of 24.4 mCi of 99m Tc MDP, whole body bone images reveal: 1. Increased catheter radiopharmaceutical concentration is newly defined in the right frontal calvarium, proximal-distal sternum, the right coracoid process, bilateral posterior ninth ribs, first, third-eighth, 11th-12th thoracic, first-fifth lumbar vertebra. 2. Facilitated uptake is currently identified in the bilateral wrist articulations right and left knees, upper cervical spine. 3. The remaining skeletal structures are scintigraphically unremarkable with normal-appearing renal images and urinary bladder activity identified. NM/Bone Scan Whole Body IMPRESSION: 1. The increase in radiopharmaceutical concentration multifocally apparent in the axial skeletal structures and right frontal calvarium is most consistent with skeletal metastatic disease. 2. Degenerative arthritis appears currently expressed in the right and left knees, cervical spine. 3. Overall compared to the previous whole body bone scintigraphy study dated 09/17/2017, there is apparent current expression of multifocal skeletal metastasis. Electronically Signed: Seamus Lorenzo DO at 11:42 EDT Tel , Service support ,
== END ==
PROVIDERS: Family Provider Family Medicine; PCP Family Medicine; Referring Provider Internal Medicine Hematology & Oncology; Visit Provider Internal Medicine Hematology & Oncology
DX: C15.9 Malignant neoplasm of esophagus, unspecified (principal); C77.2 Secondary and unspecified malignant neoplasm of intra-abdominal lymph nodes; C79.51 Secondary malignant neoplasm of bone
CPT/HCPCS: 78306

== ENCOUNTER → 2018-01-28 14:02 | Outpatient (CLI) | payer MEDICARE, SELFPAY ==
--- NOTE | 2018-01-28 14:06 | CT_ITS ---
STUDY: CT CHEST/THORAX WITH CONTRAST REASON FOR EXAM: Female, 67 years old. Restaging esophageal cancer. RADIATION DOSAGE (If Supplied By Facility): CTDIvol = ( 7.55 ) mGy, DLP = ( 339.58 ) mGycm TECHNIQUE: Transaxial imaging was performed following intravenous administration of 100CC ml of Isovue 300 contrast material. Individualized dose optimization techniques were used for this CT. COMPARISON: CT chest/thorax with IV contrast September 23, 2017. FINDINGS: Chemotherapy port hub again seen in the right infraclavicular soft tissues, its catheter extending to the superior vena cava. There are stranding, irregular posterior bibasilar densities suggesting atelectasis, slightly larger on the left. Acute inflammatory change/infection difficult to exclude. Small subsegmental cluster of fibronodular densities noted in the posterolateral right middle lobe on series 6 images 57-60. 1 mm calcified granuloma seen in the anterolateral right upper lobe on series 6 image 52, and there is a second stable 1-2 mm nodular density in the anterior periphery of the right upper lobe on image 38. There is no demonstrated pleural abnormality. The heart size is upper normal. Possible soft tissue mass versus retained food or fluid in the mid to distal thoracic esophagus. A right pretracheal lymph node near the level of the innominate artery takeoff (series 6 on image 103, series 2 image 27) is increased to 1.15 x 1.15 x 0.8 cm. A precarinal lymph node (series 6 on image 110, series 2 image 37) is 1.9 x 1.8 x 1.05 cm. A few nonspecific lymph nodes are seen in the lateral aorticopulmonary window. Borderline enlarged lymph nodes are now suggested at the right hilum. An elongated 3.1 x 0.8 x 0.9 cm lymph node seen anterior to the left mainstem bronchus at the level of its bifurcation (series 6 on image 123, series 2 image 47), and there is a 1.6 x 1.4 x 1.0 cm it left hilar lymph node on series 601 image 34, series 2 image 50. A 2.1 x 0.85 x 0.75 cm lymph node is suggested between the left lower lobe bronchus and inferior left pulmonary vein on series 601 image 136, series 2 image 54. Normal enhanced pulmonary arteries. There is stable atherosclerotic calcification of the aortic arch and main trunk of the left subclavian artery. There are mild degenerative changes of the head thoracic spine. Hypertrophic degenerative arthrosis of the bilateral acromioclavicular joints There is no demonstrated abnormality of the visualized upper abdomen. CT/Chest WITH Contrast IMPRESSION: 1. Possible soft tissue mass versus retained food or fluid in the mid to distal thoracic esophagus. 2. Mild mediastinal and hilar adenopathy now identified, as described above. 3. Stranding/irregular posterior bibasilar densities are consistent with atelectasis, greater on the left. Inflammation/infection difficult to exclude. Small subsegmental cluster fibronodular densities also now seen in the posterolateral right middle lobe. Electronically Signed: Manuel Ospina MD at 16:11 EDT , Service support ,
--- NOTE | 2018-01-28 14:07 | CT_ITS ---
STUDY: CT ABDOMEN WITH CONTRAST REASON FOR EXAM: Female, 67 years old. Restaging esophageal cancer. RADIATION DOSAGE (If Supplied By Facility): CTDIvol = ( 7.55 ) mGy, DLP = ( 339.58 ) mGycm TECHNIQUE: Transaxial images were obtained post I.V. administration of 100CC ml of Isovue 300 contrast, and oral contrast. Sagittal and coronal images were reconstructed. Individualized dose optimization techniques were used for this CT. COMPARISON: CT abdomen and pelvis September 23, 2017. FINDINGS: There are bibasilar stranding densities consistent with subsegmental atelectasis. Inflammation/infection difficult to exclude, particularly on the left. The visualized portions of the heart are within normal limits. Normal liver. The patent portal vein diameter is 13 mm. Normal gallbladder and extrahepatic biliary system. The common bile duct diameter is 7.5 mm. Normal spleen. Normal pancreas. Normal bilateral adrenal glands. Stable rounded 11 mm cortical low density consistent with a cyst in the posterolateral upper pole of the right kidney. Normal left kidney. No hydronephrosis. Gas and fluid noted in different levels of the visualized distal esophagus Normal visualized stomach. Normal small intestine. Normal colon. There is non-visualization of the appendix. There is stable atherosclerotic calcification of the abdominal aorta and proximal iliac arteries, without a demonstrated aneurysm. Normal inferior vena cava. Normal retroperitoneum. Normal abdominal wall. There are stable mild degenerative changes of the visualized lumbar spine. CT/Abdomen WITH IV Contrast IMPRESSION: 1. Gas and fluid seen in different levels of the visualized distal esophagus. There is no suspicious mural thickening or overt esophageal mass in this region, however. 2. The bowel is otherwise unremarkable without suspicious mural thickening or sign of obstruction. The appendix is not visualized. 3. Stable aortoiliac atherosclerotic calcific plaquing. There is no demonstrated aneurysm, but this still portends some risk for future cardiovascular event, Abdominal Aortic Calcific Deposits Are an Important Predictor of Vascular Morbidity and Mortality; Denys Villareal et al. Circulation, Jun 2000;103:2430-7481. 4. Stable 11 mm cortical cyst in the upper pole of the right kidney. No hydronephrosis. 5. Probable subsegmental atelectasis in the lung bases, greater on the left. Electronically Signed: Manuel Ospina MD at 15:25 EDT , Service support ,
== END ==
PROVIDERS: Family Provider Family Medicine; PCP Family Medicine; Referring Provider Internal Medicine Hematology & Oncology; Visit Provider Internal Medicine Hematology & Oncology
DX: C15.9 Malignant neoplasm of esophagus, unspecified (principal); C77.2 Secondary and unspecified malignant neoplasm of intra-abdominal lymph nodes; C79.51 Secondary malignant neoplasm of bone
CPT/HCPCS: 71260; 74160; Q9967; A4216